=== PATIENT | male | born 1985 | race Caucasian/White ===

== ENCOUNTER 2017-05-19 18:06 | Inpatient (IN) | payer SELFPAY ==
[~2017-05-19] VITALS: Ht 160 cm; Wt 64.9 kg
[2017-05-19 20:34] LABS: BASO % 0.3 %; BASO ABS # 0.03 K/uL (0-0.2); COMPLETE YES; EOS % 1.3 %; HEMATOCRIT 45.3 % (42-52); IG% 0.1 %; LYMPH % 22.7 %; LYMPH ABS # 2.13 K/uL (1.2-3.4); MEAN CELL VOLUME 87.8 fL (80-100); MEAN CORPUSCULAR HEMOGLOBIN 30.2 pg (25-34); MEAN CORPUSCULAR HGB CONC 34.4 g/dl (32-36); MEAN PLATELET VOLUME 9.8 fL (7.4-10.4); MONO % 6.1 %; NEUT % 69.5 %; PLATELET COUNT 314 K/uL (130-400); RED BLOOD COUNT 5.16 M/uL (4.7-6.1); WHITE BLOOD COUNT 9.39 K/uL (4.8-10.8)
[2017-05-19 20:54] LABS: ALT/SGPT 24 U/L (12-78); BLOOD UREA NITROGEN 11 mg/dl (7-18); BUN/CREATININE RATIO 13.7 (10-20); CALCIUM 9.4 mg/dl (8.5-10.1); CARBON DIOXIDE 28 mmol/L (21-32); CHLORIDE 108 mmol/L (98-107); CREATININE 0.82 mg/dl (0.60-1.40); GLUCOSE 90 mg/dl (70-99); POTASSIUM 4.4 mmol/L (3.5-5.1); SODIUM 141 mmol/L (136-145)
[2017-05-19 20:57] LABS: ALKALINE PHOSPHATASE 75 U/L (45-117); AST/SGOT 16 U/L (15-37)
--- NOTE | 2017-05-19 21:14 | DIAGNOSTIC IMAGING REPORT ---
TWO VIEW CHEST CLINICAL HISTORY: Fever. FINDINGS: PA and lateral chest radiographs are obtained. No prior studies are available for comparison at the time of dictation. The cardiomediastinal silhouette is unremarkable. A calcified granuloma is noted at the right lung base. The lungs and pleural spaces are otherwise clear. There is no pneumothorax. The bony thorax appears intact. IMPRESSION: No active disease in the chest. Electronically signed by: Santiago Shepherd M.D. 05/19/2017 9:12 PM Dictated Date/Time: 05/19/2017 9:12 PM
[2017-05-19 21:27] LABS: LYME DISEASE AB IGG NEG (NEG); LYME DISEASE AB IGM NEG (NEG)
[2017-05-19 21:35] LABS: PARTIAL THROMBOPLASTIN RATIO 1.1; PROTHROMBIN TIME (PATIENT) 10.7 SECONDS (9.0-12.0)
[2017-05-19 22:09] LABS: URINE APPEARANCE CLEAR (CLEAR); URINE BILIRUBIN NEG (NEG); URINE COLOR YELLOW; URINE NITRITE NEG (NEG); URINE SPECIFIC GRAVITY 1.012 (1.000-1.030); UROBILINOGEN NEG (NEG)
[2017-05-19 22:11] LABS: MANUAL MICROSCOPIC REQUIRED? NO; REVIEW REQ? NO
--- NOTE | 2017-05-19 22:39 | DIAGNOSTIC IMAGING REPORT ---
CT SCAN OF THE CHEST WITHOUT IV CONTRAST CLINICAL HISTORY: Cough and fever COMPARISON STUDY: Chest x-ray dated 05/19/2017. TECHNIQUE: CT scan of the thorax was performed from the thoracic inlet to the upper abdomen. Images are reviewed in the axial, sagittal, and coronal planes. IV contrast was not administered for this examination as per the referring clinician. The examination is modestly degraded by motion artifact. CT DOSE: 228.15 mGy.cm FINDINGS: Thyroid: Imaged portions of the thyroid gland are normal in size and attenuation. Thoracic aorta: The thoracic aorta is normal in caliber and demonstrates standard 3-vessel arch anatomy. Heart: The heart is normal in size and without pericardial effusion. The pulmonary trunk is normal in caliber. Lungs and pleural spaces: There is no airspace consolidation or pleural effusion. A calcified granuloma is present in the right lower lobe. Minimal dependent atelectasis is observed. The trachea and central airways are clear. Mediastinum: There is no mediastinal lymphadenopathy. There is a calcified subcarinal node. Romi: Bowel assessed without IV contrast. Axillae: There is no axillary lymphadenopathy. Upper abdomen: Partially visualized upper abdominal viscera is within normal limits. Skeletal structures: No lytic or blastic bony lesions are seen. Soft tissues: A 1.5 cm sebaceous cyst is present in the ventral left chest wall as seen on image #127. IMPRESSION: 1. There is no airspace consolidation or pleural effusion. 2. A calcified granuloma at the right lung base and a calcification containing subcarinal node indicate remote granulomatous infection. 3. No mediastinal lymphadenopathy is identified. Electronically signed by: Santiago Shepherd M.D. 05/19/2017 10:38 PM Dictated Date/Time: 05/19/2017 10:34 PM
[2017-05-20] MEDS ORDERED: ONDANSETRON INJ 2 MG/ML 2 ML VIAL IV PRN
[2017-05-20] MEDS ORDERED: MAGNESIUM HYDROXIDE SUSP 30 ML UDC PO PRN
[2017-05-20] MEDS ORDERED: ZOLPIDEM TARTRATE 5 MG TAB PO PRN
--- NOTE | 2017-05-20 00:16 | History and Physical ---
History & Physical Date & Time of Service: May 20, 2017 at 00:04 Chief Complaint: Cyst On Chest Primary Care Physician: No Doctor, Assigned History of Present Illness Source: patient, partner Armen is a 32 year old [place] male who has resided in [place] the last 3 years. He noticed a lump on his left chest about 7 months ago, and wanted to get it checked out, so came to the ED today. It has remained the same size, color, and consistency the entire time. He has not noticed any discharge from it. He reports he has also not been feeling well over the last few months, with a variety of symptoms. This includes headaches, eye pain, back pain, and leg cramps. He reports he has not been sleeping well but denies fevers or night sweats. He denies cough but reports his neck has been giving him difficulties and it feels like there is something in his ears. Upon arriving to the ED, he discussed with the medical student that he has been coughing up blood the last few weeks. He has also previously been incarcerated for a month about 3 years ago. He denies any known contacts with TB. He lives at home with a roommate. He works at [employer] in [place]. He presents today with a female friend / partner. Past Medical/Surgical History PMHx: None PSHx: None Family History No known FHx. Social History Smoking Status: Current Some Day Smoker Alcohol Use: socially Marital Status: single Housing status: lives with friends Occupational Status: employed Allergies Coded Allergies: No Known Allergies (Unverified , 05/20/17) Home Medications No Active Prescriptions or Reported Meds Review of Systems Constitutional: + fever, + fatigue Eyes: No worsening of vision ENT: No hearing loss Respiratory: + cough, + hemoptysis, No sputum, No wheezing, No shortness of breath, No dyspnea on exertion Cardiovascular: No chest pain Abdomen: No pain, No nausea, No vomiting Musculoskeletal: No joint pain, No muscle pain Genitourinary - Male: No hematuria, No dysuria Neurologic: + weakness, No memory loss, No paralysis Psychiatric: + anxiety, No depression symptoms Endocrine: No fatigue Hematologic / Lymphatic: No abnormal bleeding/bruising Integumentary: + rash, + new/changing skin lesions Allergic / Immunologic: No environmental allergies Physical Exam Vital Signs Date Time Temp Pulse Resp B/P (MAP) Pulse Ox O2 Delivery O2 Flow Rate FiO2 05/19/17 23:43 64 16 105/77 99 Room Air 05/19/17 21:45 52 16 107/78 99 Room Air 05/19/17 20:31 60 16 114/83 98 Room Air 05/19/17 18:15 37.2 76 18 118/80 96 Room Air General Appearance: WD/WN, no apparent distress Head: normocephalic, atraumatic Eyes: normal inspection, PERRL ENT: hearing grossly normal Neck: supple, no JVD Respiratory/Chest: lungs clear, normal breath sounds, no respiratory distress Cardiovascular: regular rate, rhythm, no murmur, normal peripheral pulses Abdomen/GI: normal bowel sounds, non tender, soft Back: normal inspection, no muscle spasm Extremities/Musculoskelatal: no calf tenderness, no pedal edema 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 Dark in color, no visible exudates, induration, or erythema.) Lymphatic: no adenopathy Diagnostics Laboratory Results Results Past 24 Hours Test 05/19/17 20:05 05/19/17 21:05 05/19/17 21:45 05/19/17 23:57 Range/Units White Blood Count 9.39 4.8-10.8 K/uL Red Blood Count 5.16 4.7-6.1 M/uL Hemoglobin 15.6 14.0-18.0 g/dL Hematocrit 45.3 42-52 % Mean Corpuscular Volume 87.8 80-100 fL Mean Corpuscular Hemoglobin 30.2 25-34 pg Mean Corpuscular Hemoglobin Concent 34.4 32-36 g/dl Platelet Count 314 130-400 K/uL Mean Platelet Volume 9.8 7.4-10.4 fL Neutrophils (%) (Auto) 69.5 % Lymphocytes (%) (Auto) 22.7 % Monocytes (%) (Auto) 6.1 % Eosinophils (%) (Auto) 1.3 % Basophils (%) (Auto) 0.3 % Neutrophils # (Auto) 6.53 1.4-6.5 K/uL Lymphocytes # (Auto) 2.13 1.2-3.4 K/uL Monocytes # (Auto) 0.57 0.11-0.59 K/uL Eosinophils # (Auto) 0.12 0-0.5 K/uL Basophils # (Auto) 0.03 0-0.2 K/uL RDW Standard Deviation 39.0 36.4-46.3 fL RDW Coefficient of Variation 12.1 11.5-14.5 % Immature Granulocyte % (Auto) 0.1 % Immature Granulocyte # (Auto) 0.01 0.00-0.02 K/uL Sodium Level 141 136-145 mmol/L Potassium Level 4.4 3.5-5.1 mmol/L Chloride Level 108 98-107 mmol/L Carbon Dioxide Level 28 21-32 mmol/L Anion Gap 5.0 3-11 mmol/L Blood Urea Nitrogen 11 7-18 mg/dl Creatinine 0.82 0.60-1.40 mg/dl Estimated GFR () 134.7 Estimated GFR (Non- 116.2 BUN/Creatinine Ratio 13.7 10-20 Random Glucose 90 70-99 mg/dl Calcium Level 9.4 8.5-10.1 mg/dl Total Bilirubin 0.4 0.2-1 mg/dl Direct Bilirubin 0.1 0-0.2 mg/dl Aspartate Amino Transf (AST/SGOT) 16 15-37 U/L Alanine Aminotransferase (ALT/SGPT) 24 12-78 U/L Alkaline Phosphatase 75 45-117 U/L Total Protein 8.1 6.4-8.2 gm/dl Albumin 4.2 3.4-5.0 gm/dl Lyme Disease IgG Antibody NEG NEG Lyme Disease IgM Antibody NEG NEG Prothrombin Time 10.7 9.0-12.0 SECONDS Prothromb Time International Ratio 1.0 0.9-1.1 Activated Partial Thromboplast Time 29.1 21.0-31.0 SECONDS Partial Thromboplastin Ratio 1.1 Urine Color YELLOW Urine Appearance CLEAR CLEAR Urine pH 7.0 4.5-7.5 Urine Specific [place] 1.012 1.000-1.030 Urine Protein NEG NEG Urine Glucose (UA) NEG NEG Urine Ketones NEG NEG Urine Occult Blood NEG NEG Urine Nitrite NEG NEG Urine Bilirubin NEG NEG Urine Urobilinogen NEG NEG Urine Leukocyte Esterase NEG NEG Microbiology Results 05/19/17 Blood Culture, Received Pending 05/19/17 Blood Culture, Received Pending Diagnostic Radiology TWO VIEW CHEST CLINICAL HISTORY: Fever. FINDINGS: PA and lateral chest radiographs are obtained. No prior studies are available for comparison at the time of dictation. The cardiomediastinal silhouette is unremarkable. A calcified granuloma is noted at the right lung base. The lungs and pleural spaces are otherwise clear. There is no pneumothorax. The bony thorax appears intact. IMPRESSION: No active disease in the chest. CT SCAN OF THE CHEST WITHOUT IV CONTRAST CLINICAL HISTORY: Cough and fever COMPARISON STUDY: Chest x-ray dated 05/19/2017. TECHNIQUE: CT scan of the thorax was performed from the thoracic inlet to the upper abdomen. Images are reviewed in the axial, sagittal, and coronal planes. IV contrast was not administered for this examination as per the referring clinician. The examination is modestly degraded by motion artifact. CT DOSE: 228.15 mGy.cm FINDINGS: Thyroid: Imaged portions of the thyroid gland are normal in size and attenuation. Thoracic aorta: The thoracic aorta is normal in caliber and demonstrates standard 3-vessel arch anatomy. Heart: The heart is normal in size and without pericardial effusion. The pulmonary trunk is normal in caliber. Lungs and pleural spaces: There is no airspace consolidation or pleural effusion. A calcified granuloma is present in the right lower lobe. Minimal dependent atelectasis is observed. The trachea and central airways are clear. Mediastinum: There is no mediastinal lymphadenopathy. There is a calcified subcarinal node. Romi: Bowel assessed without IV contrast. Axillae: There is no axillary lymphadenopathy. Upper abdomen: Partially visualized upper abdominal viscera is within normal limits. Skeletal structures: No lytic or blastic bony lesions are seen. Soft tissues: A 1.5 cm sebaceous cyst is present in the ventral left chest wall as seen on image #127. IMPRESSION: 1. There is no airspace consolidation or pleural effusion. 2. A calcified granuloma at the right lung base and a calcification containing subcarinal node indicate remote granulomatous infection. 3. No mediastinal lymphadenopathy is identified. Impression Assessment and Plan 32 yo M initially presented for evaluation of a sebaceous cyst, found to potentially have latent TB until proven otherwise. Potential for latent TB - Quantiferon test ordered - Will await initiation of anti-TB therapy until after bronchoscopy to not skew washing results - Pulmonary consulted - Infectious Diseases consulted - Patient aware of diagnosis - CB to be contacted - Negative pressure room and droplet precautions (this was started upon his arrival to the ED) Sebaceous cyst - Will defer to primary team VTE: SCDs CODE STATUS: Full DISPO: Med/Surg, Negative pressure room Resident Physician Supervision Note: I was present with Dr. Blank during the history and exam. I discussed the case with the resident and agree with the findings and plan as documented in the note. Any exceptions or clarifications are listed here: 32 y/o M no known med hX with several months of fevers, night sweats - presented with multiple blister-like skin lesions - TB was suspected and due to his histroy he was sent for a CT which did reveal a granuloma OE AAO x 3 S1,2 R CTAB NT, ND No CCE Multiple small cysts on trunk/extremities P: TB is presumed - consult pulm and ID - will not start treatment until culture obtained as symptoms have been chronic for several months Pt works at [employer] - may need to inform the dept of health Discussed at length with pt Documented By: Yaya Dye Level of Care Med/Surg Resuscitation Status FULL RESUSCITATION VTE Prophylaxis VTE Risk Assessment Done? Y/N: Yes Risk Level: Moderate Resident Tracking Resident Involvement: Resident Care Provided Care Provided: Adult Hospital Medicine
--- NOTE | 2017-05-20 00:32 | EMERGENCY ROOM VISIT NOTE ---
History Report prepared by Annie: Cindy Aguirre Under the Supervision of: Dr. Fidel Harley M.D. First contact with patient: 18:56 Chief Complaint: WOUND INFECTION Stated Complaint: CYST ON CHEST Nursing Triage Summary: Pt reports he has a cyst on his left chest. Pt noticed it 7 months ago. Pt reports it hurts now History of Present Illness The patient is a 32 year old male who presents to the Emergency Room with complaints of a persistent wound to his chest that he first noticed seven months ago. He currently rates his discomfort as a 7/10 in severity. The patient states that he noticed a bump on his chest 7 months ago and states that he saw a doctor who prescribed him an unknown cream that did not help the area. He states that at first the area did not hurt, but now is noticing pain to the area. The patient denies any drainage or discharge from the area. He states that it has grown in size from a pimple to dime sized. The patient denies any change in color. He notes that the area hurts at rest as well. The patient additionally notes smaller bumps to his chest as well. The patient additionally notes that over the past few days he has developed a headache, bilateral eye pain, a fever, back pain, cough, and right shoulder pain. He is unsure if his symptoms are related to the bumps he has formed on his chest. The patient states that he travelled to the three years ago and has not travelled back to [facility] recently. He denies any recent tick bites and denies being outdoors often. The patient states that he has been incarcerated in the past in the three years ago. He is unsure if he was exposed to anyone with Tuberculosis. He states that he was incarcerated for 1 month. The patient reports a weight loss of 5 lbs in the past 4-5 months. He has had a cough with some hemoptysis. Source of History: patient History Limited By: language Onset: seven months ago Position: chest Symptom Intensity: 7/10 Quality: other (wound) Timing: other (persistent) Associated Symptoms: + fevers, + headache, + cough, + back pain Note: Associated Symptoms: right shoulder pain, bilateral eye pain Review of Systems See HPI for pertinent positives & negatives. A total of 10 systems reviewed and were otherwise negative. Past Medical & Surgical Medical Problems: (1) Pulmonary TB No pertinent history stated. Family History No pertinent family history stated. Social History Smoking Status: Current Some Day Smoker Marital Status: Housing Status: lives with significant other Occupation Status: employed Current/Historical Medications No Active Prescriptions or Reported Meds Allergies Coded Allergies: No Known Allergies (Unverified , 05/20/17) Physical Exam Vital Signs Date Time Temp Pulse Resp B/P (MAP) Pulse Ox O2 Delivery O2 Flow Rate FiO2 05/19/17 23:43 64 16 105/77 99 Room Air 05/19/17 21:45 52 16 107/78 99 Room Air 05/19/17 20:31 60 16 114/83 98 Room Air 05/19/17 18:15 37.2 76 18 118/80 96 Room Air Physical Exam Constitutional: Vital signs reviewed. Eyes: Pupils are equal round reactive to light. Conjunctiva are noninjected. ENT: Pharynx is clear without erythema or exudate. Mucous membranes are moist. Neck supple without meningeal signs. Respiratory: Clear to auscultation bilaterally. Breath sounds are equal bilaterally. Cardiovascular: Regular rate and rhythm. No rubs or gallops. GI: Soft, nondistended and nontender. Bowel sounds are present. Musculoskeletal: No peripheral edema. No lower extremity tenderness. Integumentary: 1 cm tender cystic lesion on the left anterior chest. No cyanosis. Neurological: The patient is awake and alert. No focal deficits. Psychiatric: Normal affect. Medical Decision & Procedures ER Provider Diagnostic Interpretation: Radiology results as stated below per my review and the radiologist's interpretation: TWO VIEW CHEST CLINICAL HISTORY: Fever. FINDINGS: PA and lateral chest radiographs are obtained. No prior studies are available for comparison at the time of dictation. The cardiomediastinal silhouette is unremarkable. A calcified granuloma is noted at the right lung base. The lungs and pleural spaces are otherwise clear. There is no pneumothorax. The bony thorax appears intact. IMPRESSION: No active disease in the chest. Electronically signed by: Santiago Shepherd M.D. 05/19/2017 9:12 PM Dictated Date/Time: 05/19/2017 9:[address] SCAN OF THE CHEST WITHOUT IV CONTRAST CLINICAL HISTORY: Cough and fever COMPARISON STUDY: Chest x-ray dated 05/19/2017. TECHNIQUE: CT scan of the thorax was performed from the thoracic inlet to the upper abdomen. Images are reviewed in the axial, sagittal, and coronal planes. IV contrast was not administered for this examination as per the referring clinician. The examination is modestly degraded by motion artifact. CT DOSE: 228.15 mGy.cm FINDINGS: Thyroid: Imaged portions of the thyroid gland are normal in size and attenuation. Thoracic aorta: The thoracic aorta is normal in caliber and demonstrates standard 3-vessel arch anatomy. Heart: The heart is normal in size and without pericardial effusion. The pulmonary trunk is normal in caliber. Lungs and pleural spaces: There is no airspace consolidation or pleural effusion. A calcified granuloma is present in the right lower lobe. Minimal dependent atelectasis is observed. The trachea and central airways are clear. Mediastinum: There is no mediastinal lymphadenopathy. There is a calcified subcarinal node. Romi: Bowel assessed without IV contrast. Axillae: There is no axillary lymphadenopathy. Upper abdomen: Partially visualized upper abdominal viscera is within normal limits. Skeletal structures: No lytic or blastic bony lesions are seen. Soft tissues: A 1.5 cm sebaceous cyst is present in the ventral left chest wall as seen on image #127. IMPRESSION: 1. There is no airspace consolidation or pleural effusion. 2. A calcified granuloma at the right lung base and a calcification containing subcarinal node indicate remote granulomatous infection. 3. No mediastinal lymphadenopathy is identified. Electronically signed by: Santiago Shepherd M.D. 05/19/2017 10:38 PM Dictated Date/Time: 05/19/2017 10:34 PM Laboratory Results 05/19/17 20:05 Red Blood Count 5.16, Mean Corpuscular Volume 87.8, Mean Corpuscular Hemoglobin 30.2, Mean Corpuscular Hemoglobin Concent 34.4, Mean Platelet Volume 9.8, Neutrophils (%) (Auto) 69.5, Lymphocytes (%) (Auto) 22.7, Monocytes (%) (Auto) 6.1, Eosinophils (%) (Auto) 1.3, Basophils (%) (Auto) 0.3, Neutrophils # (Auto) 6.53, Lymphocytes # (Auto) 2.13, Monocytes # (Auto) 0.57, Eosinophils # (Auto) 0.12, Basophils # (Auto) 0.03 05/19/17 20:05 Test 05/19/17 20:05 05/19/17 21:05 05/19/17 21:45 05/19/17 23:57 White Blood Count 9.39 K/uL (4.8-10.8) Red Blood Count 5.16 M/uL (4.7-6.1) Hemoglobin 15.6 g/dL (14.0-18.0) Hematocrit 45.3 % (42-52) Mean Corpuscular Volume 87.8 fL (80-100) Mean Corpuscular Hemoglobin 30.2 pg (25-34) Mean Corpuscular Hemoglobin Concent 34.4 g/dl (32-36) Platelet Count 314 K/uL (130-400) Mean Platelet Volume 9.8 fL (7.4-10.4) Neutrophils (%) (Auto) 69.5 % Lymphocytes (%) (Auto) 22.7 % Monocytes (%) (Auto) 6.1 % Eosinophils (%) (Auto) 1.3 % Basophils (%) (Auto) 0.3 % Neutrophils # (Auto) 6.53 K/uL (1.4-6.5) Lymphocytes # (Auto) 2.13 K/uL (1.2-3.4) Monocytes # (Auto) 0.57 K/uL (0.11-0.59) Eosinophils # (Auto) 0.12 K/uL (0-0.5) Basophils # (Auto) 0.03 K/uL (0-0.2) RDW Standard Deviation 39.0 fL (36.4-46.3) RDW Coefficient of Variation 12.1 % (11.5-14.5) Immature Granulocyte % (Auto) 0.1 % Immature Granulocyte # (Auto) 0.01 K/uL (0.00-0.02) Anion Gap 5.0 mmol/L (3-11) Estimated GFR () 134.7 Estimated GFR (Non- 116.2 BUN/Creatinine Ratio 13.7 (10-20) Calcium Level 9.4 mg/dl (8.5-10.1) Total Bilirubin 0.4 mg/dl (0.2-1) Direct Bilirubin 0.1 mg/dl (0-0.2) Aspartate Amino Transf (AST/SGOT) 16 U/L (15-37) Alanine Aminotransferase (ALT/SGPT) 24 U/L (12-78) Alkaline Phosphatase 75 U/L (45-117) Total Protein 8.1 gm/dl (6.4-8.2) Albumin 4.2 gm/dl (3.4-5.0) Lyme Disease IgG Antibody NEG (NEG) Lyme Disease IgM Antibody NEG (NEG) Prothrombin Time 10.7 SECONDS (9.0-12.0) Prothromb Time International Ratio 1.0 (0.9-1.1) Activated Partial Thromboplast Time 29.1 SECONDS (21.0-31.0) Partial Thromboplastin Ratio 1.1 Urine Color YELLOW Urine Appearance CLEAR (CLEAR) Urine pH 7.0 (4.5-7.5) Urine Specific [place] 1.012 (1.000-1.030) Urine Protein NEG (NEG) Urine Glucose (UA) NEG (NEG) Urine Ketones NEG (NEG) Urine Occult Blood NEG (NEG) Urine Nitrite NEG (NEG) Urine Bilirubin NEG (NEG) Urine Urobilinogen NEG (NEG) Urine Leukocyte Esterase NEG (NEG) Laboratory results as reviewed by me. ED Course 1856: The patient was evaluated in room A2. A complete history and physical exam was performed by the medical student. 1930: The patient was evaluated in room A2. A complete history and physical exam was performed. 2256: The medical student reevaluated the patient and he states that he has been coughing up blood 2-3 times per week. The patient understands that he will be evaluated for further treatment. 2315: I reevaluated the patient and he is resting. I discussed the exam findings with him and I discussed he treatment plan. He verbalized complete understanding and agreement. He is going to be evaluated for further treatment. 2320: I discussed the patients case with MELANY Valenzuela. He is going to evaluate the patient for further treatment. Medical Decision This is a 32-year-old male who presents with a skin lesion and a variety of complaints. Differential diagnosis includes infected cyst, abscess, tuberculosis, viral syndrome, Lyme disease. I did perform a limited focused review of portions of the patient's old chart on the electronic medical record. The patient has had no prior visits. Medication Reconciliation: I attest that I have personally reviewed the patient' s current medication list. Blood Pressure Screening: Patient was found to have normal blood pressure on screening and does not require follow-up. I did evaluate the patient as noted above. History was obtained using a mate fourth. Patient is presenting with a skin lesion. It does appear to be a infected cyst of some sort. There is no cellulitis surrounding it. He also has a variety of other complaints including fevers, vomiting, headaches and cough with hemoptysis. He was previously incarcerated about 3 years ago in the . He has no known exposures to TB. He does state that he had a recent 5 pound unexplained weight loss and he has been feeling generally ill. I did place the patient in a negative pressure isolation room. IV access was established. I did order and personally review the patient's there Chest x- ray as described above. There is no evidence of acute abnormality. I did order and review the patient's blood work as noted in the electronic medical record. I did order a CT of the chest. I did review the images myself as well as the radiology report as described above. He does have a granuloma in the right side with a subcarinal lymph node. Because of his clinical presentation and CT findings I was concerned about tuberculosis. I did discuss case with the hospitalist and counseling case manager. He will be hospitalized for further evaluation. Consults Time Called: 2300 Consulting Physician: MELANY Valenzuela Returned Call: 2320 I discussed the patients case with MELANY Valenzuela. He is going to evaluate the patient for further treatment. Impression Primary Impression: Tuberculosis Additional Impression: Skin lesion of chest wall Scribe Attestation The scribe's documentation has been prepared under my direct and personally reviewed by me in its entirety. I confirm that the note above accurately reflects all work, treatment, procedures, and medical decision making performed by me. Departure Information Dispostion Being Evaluated By Hospitalist Prescriptions No Active Prescriptions or Reported Meds Problem Qualifiers
[2017-05-20 01:20] VITALS: BP 109/73; PULSE 62; TEMP 37; O2SAT 98; Ht 160 cm; Wt 64.9 kg
[2017-05-20] MEDS ORDERED: PATIENT'S HEIGHT AND/OR WEIGHT NEEDED SCH (03:30)
[2017-05-20 07:47] VITALS: BP 93/58; PULSE 54; TEMP 36.8; O2SAT 99
[2017-05-20] MEDS ORDERED: ENOXAPARIN 40 MG/0.4 ML SYR SQ SCH (09:00)
[2017-05-20] MEDS: ACETAMINOPHEN 325 MG TAB PO PRN (09:12)
--- NOTE | 2017-05-20 09:35 | Medical Consult ---
Consultation Date of Consultation: May 20, 2017. Attending Physician: Pedro Cain MD History of Present Illness pt admitted for ? TB. [place] Unknown previous TB workup. Has had a lump on chest for many months, came to ER for eval of this yesterday. He also stated some hemoptysis for months as well. was admitted for tb workup, IGRA penidng, placed in isolation, no sputums ordered. blood culture pending, cxr negative but ct chest with granuloma RLL. States he is eating well , denies wt loss but states he is unsure. + intermittent fevers and neck pain. denies cervical lymphadenopathy. Unknown contacts. Afebrile since admission. wbc 9.3. sitting oob to chair and eating breakfast on my exam. denies pleuritic chest pain. no n/v/d. states some abd pain if he drinks too much coffee, otherwise ros reviewed and are negative. Past Medical/Surgical History Medical Problems: (1) Skin lesion of chest wall Status: Acute (2) Tuberculosis Status: Acute Social History Smoking Status: Former Smoker Alcohol Use: socially Marital Status: Housing Status: lives with significant other Occupation Status: employed Allergies Coded Allergies: No Known Allergies (Unverified , 05/20/17) Current Inpatient Medications Current Inpatient Medications Medications (Trade) Dose Ordered Sig/Ella Route Start Time Stop Time Status Last Admin Dose Admin Enoxaparin Sodium (Lovenox Inj) 40 mg Q24H SQ 05/20/17 09:00 06/19/17 08:59 Acetaminophen (Tylenol Tab) 650 mg Q4H PRN PO 05/20/17 00:00 06/19/17 00:00 05/20/17 09:12 650 MG Magnesium Hydroxide (Milk Of Magnesia Susp) 30 ml Q6H PRN PO 05/20/17 00:00 06/19/17 00:00 Zolpidem Tartrate (Ambien Tab) 5 mg HSZ PRN PO 05/20/17 00:00 06/19/17 00:00 Ondansetron HCl (Zofran Inj) 4 mg Q6H PRN IV 05/20/17 00:00 06/19/17 00:00 Physical Exam Date Time Temp Pulse Resp B/P (MAP) Pulse Ox O2 Delivery O2 Flow Rate FiO2 05/20/17 07:47 36.8 54 18 93/58 (70) 99 Room Air 05/20/17 01:20 37.0 62 18 109/73 98 Room Air 05/20/17 01:15 64 16 106/68 99 05/19/17 23:43 64 16 105/77 99 Room Air 05/19/17 21:45 52 16 107/78 99 Room Air 05/19/17 20:31 60 16 114/83 98 Room Air 05/19/17 18:15 37.2 76 18 118/80 96 Room Air General Appearance: WD/WN, no apparent distress Head: normocephalic, atraumatic Eyes: normal inspection, EOMI Neck: supple, no adenopathy Respiratory/Chest: lungs clear, normal breath sounds, no respiratory distress Cardiovascular: regular rate, rhythm, no edema Abdomen/GI: non tender, soft Extremities/Musculoskelatal: normal inspection, no calf tenderness, no pedal edema Neurologic/Psych: alert, oriented x 3 Skin: normal color, warm/dry, no rash Laboratory Results Last 24 Hours Test 05/19/17 20:05 05/19/17 21:05 05/19/17 21:45 05/20/17 05:16 White Blood Count 9.39 K/uL Red Blood Count 5.16 M/uL Hemoglobin 15.6 g/dL Hematocrit 45.3 % Mean Corpuscular Volume 87.8 fL Mean Corpuscular Hemoglobin 30.2 pg Mean Corpuscular Hemoglobin Concent 34.4 g/dl Platelet Count 314 K/uL Mean Platelet Volume 9.8 fL Neutrophils (%) (Auto) 69.5 % Lymphocytes (%) (Auto) 22.7 % Monocytes (%) (Auto) 6.1 % Eosinophils (%) (Auto) 1.3 % Basophils (%) (Auto) 0.3 % Neutrophils # (Auto) 6.53 K/uL Lymphocytes # (Auto) 2.13 K/uL Monocytes # (Auto) 0.57 K/uL Eosinophils # (Auto) 0.12 K/uL Basophils # (Auto) 0.03 K/uL RDW Standard Deviation 39.0 fL RDW Coefficient of Variation 12.1 % Immature Granulocyte % (Auto) 0.1 % Immature Granulocyte # (Auto) 0.01 K/uL Sodium Level 141 mmol/L Potassium Level 4.4 mmol/L Chloride Level 108 mmol/L Carbon Dioxide Level 28 mmol/L Anion Gap 5.0 mmol/L Blood Urea Nitrogen 11 mg/dl Creatinine 0.82 mg/dl Estimated GFR () 134.7 Estimated GFR (Non- 116.2 BUN/Creatinine Ratio 13.7 Random Glucose 90 mg/dl Calcium Level 9.4 mg/dl Total Bilirubin 0.4 mg/dl Direct Bilirubin 0.1 mg/dl Aspartate Amino Transf (AST/SGOT) 16 U/L Alanine Aminotransferase (ALT/SGPT) 24 U/L Alkaline Phosphatase 75 U/L Total Protein 8.1 gm/dl Albumin 4.2 gm/dl Lyme Disease IgG Antibody NEG Lyme Disease IgM Antibody NEG Prothrombin Time 10.7 SECONDS Prothromb Time International Ratio 1.0 Activated Partial Thromboplast Time 29.1 SECONDS Partial Thromboplastin Ratio 1.1 Urine Color YELLOW Urine Appearance CLEAR Urine pH 7.0 Urine Specific [place] 1.012 Urine Protein NEG Urine Glucose (UA) NEG Urine Ketones NEG Urine Occult Blood NEG Urine Nitrite NEG Urine Bilirubin NEG Urine Urobilinogen NEG Urine Leukocyte Esterase NEG Assessment & Plan (1) Lung granuloma Assessment & Plan: with history and previous residence in TB area, will need workup. IGRA pending. Needs sputum culture for AFB x 3, if unable to produce will need bronch. maintain airborne isolation until sputum smears negative. Hold abx for now pending further workup.
[2017-05-20] MEDS ORDERED: RANITIDINE HCL 150 MG TAB PO ONE (12:09)
--- NOTE | 2017-05-20 14:18 | Pulmonary Consultation ---
History General Date of Service: May 20, 2017. Stated Complaint: Pulmonary Tb HPI The patient is a 32 year old male who presents to [facility] with complaints of Pulmonary Tb. The patient's primary care provider is No Doctor, Assigned. CC: Possible Tuberculosis The patient is a 32 year old [place] male admitted through the [facility] ED for possible TB. The patient has been living in [place] over the last 3 years and working at [employer]. 7 months prior to admission he noted a lump on his anterior left serina-thorax. He decides on the day of admission to get evaluated. He denies change in size, shape, and discharge in the node during this time. He does note headache, insomnia, neck pain, back pain, leg cramps, hemoptysis (1-2x per month over the previous 3 months) and a history of previous incarceration (for one month in [place] via immigration). He works at [employer], live with roommates and has a female partner Positive findings: Headache, myalgias, hemoptysis Denies: fever, unintentional weight loss, pleurisy Work-Up VS: Temp: 37.0 max WBC: 9K (Neutro#: 6.53) INR: 1.0 PTT: 10.7 aPPT: 29.1 Lyme: negative Quant-Gold: pending---place PPD Radiology: CXR (05/19/17) nodule RLL CT Thorax non-contrast (05/19/17) calcified granuloma RLL and ram[place] station 7 Review of Systems Constitutional: reports: malaise Eyes: reports: other (patient notes it feels like he has a hair in his eyes but completely clear vision) ENT: reports: no symptoms Cardiovascular: reports: no symptoms Respiratory: reports: as stated in HPI Gastrointestinal: reports: no symptoms Genitourinary - Male: reports: no symptoms Musculoskeletal: reports: as stated in HPI Integumentary: reports: no symptoms Neurologic: reports: as stated in HPI Psychiatric: reports: no symptoms Endocrine: no symptoms Hematologic / Lymphatic: no symptoms Allergic / Immunologic: no symptoms Past Medical History Past Medical History: no pertinent history Past Surgical History: no surgical history Family History Presentation no significant family history Social History Smoking Status: Current Smoker Alcohol Use: socially Marital Status: single Housing status: lives with friends Occupational Status: employed Hx Tobacco Use In Past Year?: No Smoking Status: Former Smoker Marital status: Housing status: lives with friends Occupational Status: employed Allergies Coded Allergies: No Known Allergies (Unverified , 05/20/17) Current Medications Reported Home Medications Medications Dose Route/Sig Max Daily Dose Days Date Category No Active Prescriptions or Reported Medications Rx Physical Physical Exam Vital Signs: Date Time Temp Pulse Resp B/P (MAP) Pulse Ox O2 Delivery O2 Flow Rate FiO2 05/20/17 08:00 Room Air 05/20/17 07:47 36.8 54 18 93/58 (70) 99 Room Air 05/20/17 01:20 37.0 62 18 109/73 98 Room Air 05/20/17 01:15 64 16 106/68 99 05/19/17 23:43 64 16 105/77 99 Room Air 05/19/17 21:45 52 16 107/78 99 Room Air 05/19/17 20:31 60 16 114/83 98 Room Air 05/19/17 18:15 37.2 76 18 118/80 96 Room Air General Appearance: WELL-APPEARING, NO APPARENT DISTRESS Head: NORMOCEPHALIC, ATRAUMATIC Eyes: PERRLA, NO DISCHARGE, EOMI, SCLERAE NORMAL, CONJUNCTIVAE NORMAL ENT: NORMAL EAR EXAM, NORMAL NASAL EXAM, NORMAL MOUTH EXAM, NORMAL THROAT EXAM , NORMAL DENTAL EXAM Neck: NORMAL RANGE OF MOTION, NO TENDERNESS, TRACHEA MIDLINE, NO STRIDOR Respiratory: BREATH SOUNDS NORMAL, CLEAR TO AUSCULTATION, CLEAR TO PERCUSSION, NO RESPIRATORY DISTRESS, other (left anterior chest wall just medial to the sternum approximately fourth intercostal space 1 cm erythematous nodule noted) Cardiovasular: REGULAR RATE/RHYTHM, NORMAL S1S2, NO M/G/R, NO MURMUR, NO GALLOP Abdomen: NON TENDER, NORMAL BOWEL SOUNDS, NO REBOUND, NO MASSES, NO GUARDING, NO ORGANOMEGALY Genitourinary - Male: EXTERNAL GENITALIA NORMAL Back: NORMAL INSPECTION, NO MIDLINE TENDERNESS, NO CVA TENDERNESS, NO PARAVERTEBRAL TTP Upper Extremities: NO EDEMA, NO DEFORMITY, NORMAL ROM Lower Extremities: NO EDEMA, NO DEFORMITY, NORMAL ROM Pulses: carotid (R) (2+), carotid (L) (2+), posterior tibial (R), posterior tibial (L) (2+) Neuro: ALERT, ORIENTED x 3, NORMAL MOTOR EXAM, NORMAL SENSATION, NORMAL CEREBELLAR EXAM Reflexes: biceps (R) (2+), bicpes (L) (2+), achilles (R) (2+), achilles (L) (2+ ) Babinski Testing: right (downgoing), left (downgoing) Psychiatric: NORMAL AFFECT, NO SUICIDAL IDEATION Diagnostics Labs Results Past 24 Hours Test 05/19/17 20:05 05/19/17 21:05 05/19/17 21:45 05/20/17 05:16 Range/Units White Blood Count 9.39 4.8-10.8 K/uL Red Blood Count 5.16 4.7-6.1 M/uL Hemoglobin 15.6 14.0-18.0 g/dL Hematocrit 45.3 42-52 % Mean Corpuscular Volume 87.8 80-100 fL Mean Corpuscular Hemoglobin 30.2 25-34 pg Mean Corpuscular Hemoglobin Concent 34.4 32-36 g/dl Platelet Count 314 130-400 K/uL Mean Platelet Volume 9.8 7.4-10.4 fL Neutrophils (%) (Auto) 69.5 % Lymphocytes (%) (Auto) 22.7 % Monocytes (%) (Auto) 6.1 % Eosinophils (%) (Auto) 1.3 % Basophils (%) (Auto) 0.3 % Neutrophils # (Auto) 6.53 1.4-6.5 K/uL Lymphocytes # (Auto) 2.13 1.2-3.4 K/uL Monocytes # (Auto) 0.57 0.11-0.59 K/uL Eosinophils # (Auto) 0.12 0-0.5 K/uL Basophils # (Auto) 0.03 0-0.2 K/uL RDW Standard Deviation 39.0 36.4-46.3 fL RDW Coefficient of Variation 12.1 11.5-14.5 % Immature Granulocyte % (Auto) 0.1 % Immature Granulocyte # (Auto) 0.01 0.00-0.02 K/uL Sodium Level 141 136-145 mmol/L Potassium Level 4.4 3.5-5.1 mmol/L Chloride Level 108 98-107 mmol/L Carbon Dioxide Level 28 21-32 mmol/L Anion Gap 5.0 3-11 mmol/L Blood Urea Nitrogen 11 7-18 mg/dl Creatinine 0.82 0.60-1.40 mg/dl Estimated GFR () 134.7 Estimated GFR (Non- 116.2 BUN/Creatinine Ratio 13.7 10-20 Random Glucose 90 70-99 mg/dl Calcium Level 9.4 8.5-10.1 mg/dl Total Bilirubin 0.4 0.2-1 mg/dl Direct Bilirubin 0.1 0-0.2 mg/dl Aspartate Amino Transf (AST/SGOT) 16 15-37 U/L Alanine Aminotransferase (ALT/SGPT) 24 12-78 U/L Alkaline Phosphatase 75 45-117 U/L Total Protein 8.1 6.4-8.2 gm/dl Albumin 4.2 3.4-5.0 gm/dl Lyme Disease IgG Antibody NEG NEG Lyme Disease IgM Antibody NEG NEG Prothrombin Time 10.7 9.0-12.0 SECONDS Prothromb Time International Ratio 1.0 0.9-1.1 Activated Partial Thromboplast Time 29.1 21.0-31.0 SECONDS Partial Thromboplastin Ratio 1.1 Urine Color YELLOW Urine Appearance CLEAR CLEAR Urine pH 7.0 4.5-7.[address] 1.012 1.000-1.030 Urine Protein NEG NEG Urine Glucose (UA) NEG NEG Urine Ketones NEG NEG Urine Occult Blood NEG NEG Urine Nitrite NEG NEG Urine Bilirubin NEG NEG Urine Urobilinogen NEG NEG Urine Leukocyte Esterase NEG NEG Microbiology Results 05/19/17 Blood Culture, Received Pending 05/19/17 Blood Culture, Received Pending Diagnostic Radiology CXR (05/19/17) nodule RLL CT Thorax non-contrast (05/19/17) calcified granuloma RLL and ramon station 7 Impression Assessment and Plan 32-year-old male admitted in place and isolation for possible tuberculosis: #1 Tuberculosis: The patient does have a strong social history as well as notable exposure as he comes from [place] and was incarcerated, in [place] but only for month by the INS as he immigrated to [facility]. As the patient is an undocumented alien he has never been fully evaluated for tuberculosis. He also notes no workup by the INS system in [place]. In 2013 approximately 66% of the TB cases and [place] were notably from foreign- born individuals in the majority of these cases were from countries: [place], [place], [place], [place], [place], [place] and [place]. Agree with the primary care teams initiation of a QuantiFERON Gold. As with a slow turnaround time for QuantiFERON Gold serum studies that suggest we place a PPD. I should note that if the PPD is negative would have to clinically treated as a false negative at this time. I'm also concerned that the patient might have disseminated TB as he is noted to have an anterior parasternal nodule as well as 6 to 7 months with headache and myalgias. Due to this I will speak to pathology to see if we can obtain a transcutaneous biopsy of the lymph node for further evaluation as well as perform lumbar puncture to rule out meningitis. I also agree with the primary care teams initiation of HIV testing. As the patient is high risk for tuberculosis I suggest we contact public health so they can initiate further community workup if necessary and also suggest if we initiate primary TB treatment.
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
--- NOTE | 2017-05-20 15:14 | DIAGNOSTIC IMAGING REPORT ---
CT HEAD WITHOUT CONTRAST (CT) CLINICAL HISTORY: Chronic headaches. Miliary TB. COMPARISON STUDY: No previous studies for comparison. TECHNIQUE: Axial CT of the brain is performed from the vertex to the skull base. IV contrast was not administered for this examination. CT DOSE: 623.48 mGy.cm FINDINGS: No intra or extra-axial mass lesions are visualized. There is no CT evidence of acute cortical infarction. There is no evidence of midline shift. There is no acute hemorrhage. No calvarial fractures are visualized. There is no evidence of pathologic ventricular dilatation. There is no evidence of acute sinusitis IMPRESSION: Normal noncontrast head CT. Electronically signed by: Dagoberto Thakur M.D. 05/20/2017 3:12 PM Dictated Date/Time: 05/20/2017 3:11 PM
[2017-05-20 16:01] VITALS: BP 112/76; PULSE 64; TEMP 36.7; O2SAT 98
--- NOTE | 2017-05-20 17:25 | Procedure Note ---
Procedure Note Date of Service May 20, 2017. Procedure Note Procedure: Lumbar puncture Consent: Obtained to the patient and the poolroom/poolhall manager placed in the chart Preprocedural diagnosis: TB meningitis Postprocedural diagnosis: Normal-appearing CSF fluid Analgesia: 5 cc 1% liquid lidocaine Procedure list: Dr. Fidel Noble Procedure: The patient was draped and prepped in a sterile fashion. Following the injection of the lidocaine the LP needle was slowly introduced proximally 4 cm into the patient went clear appearing CSF fluid again to drip from the needle. At this time approximately 20 cc of CSF fluid was obtained and sent off for analysis. The patient tolerated the procedure well and noted a mild headache at the end of the procedure. He was then laid flat will be kept there for the next 2 hours. Complications: None
[2017-05-20 17:46] LABS: CSF APPEARANCE CLEAR; CSF COLOR COLORLESS; CSF XANTHOCHROMIC NO XANTHOCHROMIA
[2017-05-20 18:02] LABS: CSF TOTAL PROTEIN 33.3 mg/dl (15.0-45.0)
[2017-05-20 18:19] LABS: CSF CHEMISTRY TUBE # 2
[2017-05-20] MEDS ORDERED: NURSING VERBAL MED ORDER ONE (19:15)
[2017-05-20] MEDS ORDERED: TUBERCULIN SKIN TEST 5 TU in SYRINGE 0 ML ID ONE (20:00)
[2017-05-20 23:08] VITALS: BP 104/66; PULSE 59; TEMP 36.7; O2SAT 98
[2017-05-21 07:42] VITALS: BP 99/63; PULSE 61; TEMP 36.7; O2SAT 99
[2017-05-21 08:45] VITALS: O2SAT 99
[2017-05-21] MEDS: RANITIDINE HCL 150 MG TAB PO SCH (09:18)
[2017-05-21] MEDS: ACETAMINOPHEN 325 MG TAB PO PRN (09:23)
--- NOTE | 2017-05-21 11:52 | Family Medicine Progress Note ---
Progress Note Date of Service May 21, 2017. Subjective Pt evaluation today including: conversation w/ patient, physical exam, chart review, conversation w/ application security consultant, review of inpatient medication list Pain: mild PO Intake: good Voiding: no voiding problems His abdominal pain has improved after starting zantac. Denies any nausea or vomiting he is having minimal pain over LP site and is having a mild headache He has not been coughing He has not had any fevers or chills Constitutional: No fever, No chills, No sweats ENT: No hearing loss, No sore throat Respiratory: No cough, No shortness of breath Cardiovascular: No chest pain, No palpitations Abdomen: No pain, No nausea, No vomiting, No diarrhea, No constipation Musculoskeletal: No joint pain, No muscle pain Male : No dysuria Endo: + fatigue Skin: No itch, No new/changing skin lesions Medications Current Inpatient Medications Medications (Trade) Dose Ordered Sig/Ella Route Start Time Stop Time Status Last Admin Dose Admin Acetaminophen (Tylenol Tab) 650 mg Q4H PRN PO 05/20/17 00:00 06/19/17 00:00 05/21/17 09:23 650 MG Magnesium Hydroxide (Milk Of Magnesia Susp) 30 ml Q6H PRN PO 05/20/17 00:00 06/19/17 00:00 Zolpidem Tartrate (Ambien Tab) 5 mg HSZ PRN PO 05/20/17 00:00 06/19/17 00:00 Ondansetron HCl (Zofran Inj) 4 mg Q6H PRN IV 05/20/17 00:00 06/19/17 00:00 Ranitidine HCl (zANTac TAB) 150 mg QAM PO 05/21/17 08:00 06/20/17 07:59 05/21/17 09:18 150 MG Miscellaneous (Ppd Check) 1 ea Q48H N/A 05/22/17 20:00 05/22/17 20:01 Objective Vital Signs Date Time Temp Pulse Resp B/P (MAP) Pulse Ox O2 Delivery O2 Flow Rate FiO2 05/21/17 08:45 99 Room Air 05/21/17 07:42 36.7 61 16 99/63 (75) 99 Room Air 05/21/17 00:01 Room Air 05/20/17 23:08 36.7 59 18 104/66 (79) 98 Room Air 05/20/17 20:00 Room Air 05/20/17 16:01 36.7 64 16 112/76 (88) 98 Room Air 05/20/17 16:00 Room Air Physical Exam General Appearance: WD/WN, no apparent distress Notes: General Appearance: WD/WN, no apparent distress ENT: hearing grossly normal, pharynx normal Neck: supple, no adenopathy, no carotid bruits, trachea midline Respiratory/Chest: lungs clear, normal breath sounds, no respiratory distress, no accessory muscle use, + pertinent finding (has a small nodule on anterior of left chest) Cardiovascular: regular rate, rhythm, no edema, no JVD, no murmur Abdomen: normal bowel sounds, non tender, soft, Extremities: non-tender, no pedal edema, no calf tenderness Neurologic/Psychiatric: alert, normal mood/affect, oriented x 3 Laboratory Results Results Past 24 Hours Test 05/20/17 14:01 05/20/17 17:20 Range/Units CSF Color COLORLESS CSF Appearance CLEAR CSF WBC 2 0-5 /uL CSF RBC 0 0 /uL CSF Xanthrochromic NO XANTHOCHROMIA CSF Cell Count Tube # 3 CSF Chemistry Tube # 2 CSF Glucose 74 40-70 mg/dl CSF Total Protein 33.3 15.0-45.0 mg/dl Microbiology Results 05/20/17 Gram Stain - Final, Resulted 05/20/17 CSF Culture - Preliminary, Resulted NO GROWTH TO DATE. 05/20/17 Fungal Culture, Received Pending Assessment and Plan 32 yo M initially presented for evaluation of a sebaceous cyst, found to potentially have latent TB until proven otherwise. Potential for latent TB - Quantiferon test ordered - Pulmonary consulted - ordered a skin biopsy of nodule on chest, LP with normal results - Infectious Diseases consulted - ordered AFB sputum culture and smear, unable to produce sputum. will likely need bronch by pulm - CB to be contacted - Negative pressure room and droplet precautions (this was started upon his arrival to the ED) - HIV, Hep B and Hep C to be ordered tomorrow Abdominal pain - zantac PO External haemmorhoids - anusol q6 Get social work to do MA application as patient has no insurance Resident Physician Supervision Note: I was present with GPY2 Dr. Boo Noble during the history and exam. I discussed the case with the resident and agree with the findings and plan as documented in the note. Any exceptions or clarifications are listed here: none. Pt continues with mild abdominal discomfort. Through the Gamma Ray Operator he states it is often worse with food. He has not had the anusol cream yet. Reports "bumps" on his scrotal area. No fever, chills. Appetite is normal. VSS no fever gen - NAD heart - RRR, s1, s2 lungs - CTA b/l abd - soft, no HSM, NT, ND, BS+ skin - cyst left chest wall w/o signs of infection ext - no edema - 2 or 3 small follicular pustules on inner thigh CT chest and cxr findings reviewed A/P: Possible active tuberculosis; ?disseminated? External hemorrhoid. Headaches - chronic. LP and CT head normal. Folliculitis - groin region - reassurance. Abd pain in setting of hemorrhoid - likely constipation - will obtain KUB x-ray ; miralax. Agree if unable to produce sputum for AFB will need bronch. HIV verbal consent obtained for HIV testing. FNA of skin lesion tomorrow to r/o disseminated TB. SW consult - has no health insurance. Documented By: Pedro Cain MD Continued [facility] stay due to: home environment unsafe for pt
[2017-05-21 16:15] VITALS: O2SAT 97
[2017-05-21 16:16] VITALS: BP 103/65; PULSE 62; TEMP 36.7; O2SAT 97
--- NOTE | 2017-05-21 17:42 | Pulmonology Progress Note ---
Pulmonary Progress Note Date of Service May 21, 2017. Attending Dr. Arroyo Subjective Patient notes he has no pulmonary complaints over the last 24 hours. He currently denies: Fever, chills, night sweats, hemoptysis or any cough Objective Patient looks well he is able to ambulate throughout the room with no signs of respiratory insufficiency or distress: VS: SaO2: 97-99 FiO2: RA RR: 16-18 Temp: 63.7 max RESP: Clear to auscultation bilaterally CARD: S1-S2 regular rate and rhythm EXT: No clubbing no cyanosis no edema PPD site: No signs of induration or edema at this time LABS: PPD placement: HIV panel: Pending Hepatitis panels: Pending QuantiFERON Gold: Pending CSF Fluid: Appearance/color: Clear WBCs: 2 (WNL) RBC: 0 (WNL) GLU: 74 (WNL: ratio: 082) T-Pro: 33.3 (WNL) Cultures: Pending Sputum: none documented in the system at this time Chest x-ray: Within normal limits/no acute disease noted Assessment & Plan 32-year-old gentleman admitted for rule out of tuberculosis: #1 Tuberculosis: Patient does have a social history as well as clinical history suggestive of tuberculosis. This time we are still working up the patient for tuberculosis both latent and/or active. QuantiFERON Gold studies still pending and he does have a PPD placed but we do not have control zero [facility]. We are also waiting on workup for HIV and hepatitis titers. At this time the patient should continue in isolation. I discard the lab and there is no sputum samples for analysis at this time. We'll have to be more aggressive about obtaining proper sputum samples every morning. At this time we' ll wait the PPD and if it is positive we'll consider the patient with active tuberculosis until proven otherwise. If the PPD is negative we'll still have to wait on the QuantiFERON Gold to determine if patient has a proper immune response as we have no control skin testing at [facility]. If we are unable to obtain a proper sputum sample patient may have to undergo bronchoscopy. Studies of shown that one bronchoscopy followed by every 8 induce sputum's is equal to 3 morning sputums. Studies of also shown that bronchoscopy with BAL and transbronchial biopsies as an increased rate of sensitivity of 81% . At this time I will leave it up to the pulmonary team rounding next week. Data Medications: Current Inpatient Medications Medications (Trade) Dose Ordered Sig/Ella Route Start Time Stop Time Status Last Admin Dose Admin Acetaminophen (Tylenol Tab) 650 mg Q4H PRN PO 05/20/17 00:00 06/19/17 00:00 05/21/17 09:23 650 MG Magnesium Hydroxide (Milk Of Magnesia Susp) 30 ml Q6H PRN PO 05/20/17 00:00 06/19/17 00:00 Zolpidem Tartrate (Ambien Tab) 5 mg HSZ PRN PO 05/20/17 00:00 06/19/17 00:00 Ondansetron HCl (Zofran Inj) 4 mg Q6H PRN IV 05/20/17 00:00 06/19/17 00:00 Ranitidine HCl (zANTac TAB) 150 mg QAM PO 05/21/17 08:00 06/20/17 07:59 05/21/17 09:18 150 MG Miscellaneous (Ppd Check) 1 ea Q48H N/A 05/22/17 20:00 05/22/17 20:01 Hydrocortisone (Proctozone Hc 2.5% Crm) 1 appln Q6H EXT 05/21/17 18:00 06/20/17 17:59 Vital Signs: Date Time Temp Pulse Resp B/P (MAP) Pulse Ox O2 Delivery O2 Flow Rate FiO2 05/21/17 16:16 36.7 62 18 103/65 (78) 97 Room Air 05/21/17 16:15 97 Room Air 05/21/17 08:45 99 Room Air 05/21/17 07:42 36.7 61 16 99/63 (75) 99 Room Air 05/21/17 00:01 Room Air 05/20/17 23:08 36.7 59 18 104/66 (79) 98 Room Air 05/20/17 20:00 Room Air
--- NOTE | 2017-05-21 18:14 | DIAGNOSTIC IMAGING REPORT ---
KUB CLINICAL HISTORY: Generalized abdominal pain. Constipation. FINDINGS: 2 AP supine abdominal radiograph are obtained. Correlation is made with chest CT dated 05/19/2017. There is a nonobstructed abdominal bowel gas pattern noting moderate colonic fecal retention. No evidence of intraperitoneal free air is seen on these supine views. There are no abnormal abdominal calcifications. There is no evidence of mass effect or organomegaly. The bony structures appear intact. Calcified granuloma is again seen at the right lung base. IMPRESSION: Nonobstructed abdominal bowel gas pattern noting moderate constipation. Electronically signed by: Santiago Shepherd M.D. 05/21/2017 6:13 PM Dictated Date/Time: 05/21/2017 6:12 PM
[2017-05-21] MEDS: POLYETHYLENE (MIRALAX) 17 GM PACK PO SCH (20:00)
[2017-05-21] MEDS: HYDROCORTISONE HC 2.5% CRM 30GM TUBE EXT SCH (21:33)
[2017-05-21 23:15] VITALS: BP 100/63; PULSE 60; TEMP 36.7; O2SAT 98
[2017-05-22] MEDS: HYDROCORTISONE HC 2.5% CRM 30GM TUBE EXT SCH ×4 (05:51→18:29)
[2017-05-22] MEDS: ACETAMINOPHEN 325 MG TAB PO PRN (05:55)
[2017-05-22] MEDS: POLYETHYLENE (MIRALAX) 17 GM PACK PO SCH (06:01)
[2017-05-22 07:35] VITALS: BP 96/60; PULSE 61; TEMP 36.6; O2SAT 99
[2017-05-22] MEDS: RANITIDINE HCL 150 MG TAB PO SCH (08:03)
--- NOTE | 2017-05-22 10:10 | Progress Note ---
Subjective Date of Service: May 22, 2017. Subjective pt underwent lp, only 2 wbc, gram stain csf culture negative. blood cultures negative. no f/c. IGRA pending, HIV negative. sputum ordered, pending. no overnight events. Problem List Medical Problems: (1) Skin lesion of chest wall Status: Acute (2) Tuberculosis Status: Acute Objective Vital Signs Date Time Temp Pulse Resp B/P (MAP) Pulse Ox O2 Delivery O2 Flow Rate FiO2 05/22/17 08:30 Room Air 05/22/17 07:35 36.6 61 16 96/60 (72) 99 Room Air 05/22/17 00:00 Room Air 05/21/17 23:15 36.7 60 18 100/63 (75) 98 Room Air 05/21/17 20:00 Room Air 05/21/17 16:16 36.7 62 18 103/65 (78) 97 Room Air 05/21/17 16:15 97 Room Air Laboratory Results Item Value Date Time Gram Stain - Final Complete 05/20/17 1720 Cerebral Spinal Fluid HIV (1&2) Ab and P24 Ag, 4th Gener NEG 05/22/17 0538 CSF WBC 2 /uL 05/20/17 1720 Last 24 Hours Test 05/22/17 05:38 HIV (1&2) Ab and P24 Ag, 4th Gener NEG Assessment and Plan (1) Lung granuloma Assessment & Plan: await sputum afb, IGRA results. If unable to produce sputum , will need bronch. Continued [facility] stay due to: home environment unsafe for pt
[2017-05-22 10:17] LABS: HEPATITIS B AB NEG
--- NOTE | 2017-05-22 10:18 | Pulmonology Progress Note ---
Pulmonary Progress Note Date of Service May 22, 2017. Attending Christoph Dugan Patient seen and examined. He denies any fever, chills, cough, shortness of breath or chest pain. States that headache has resolved with Tylenol. Objective 32-yo Norwegian Ivorian speaking male admitted through [facility] ER 05/19/17 with 6-7 month h/o arthralgias, fevers, enlarging left anterior chest lesion, and cough + hemoptysis (1-2x / month - past 3-months). Prior h/o includes: incarceration x 1-month- [place] and former tobacco. 05/20/17: LP completed PPD placed 05/22/17 CXR 05/19/17: calcified granuloma: right lung base CT chest 05/19/17: RLL calcified granuloma. No adenopathy - prominent node. 1.5cm sebaceous cyst ventral left chest wall. Today: -98-99%: RA - Afebrile, HD stable - Quant Gold: pending - Sputum 05/21/17: Pending - CSF 05/20/17: pending Physical Exam: Constitutional Exam: AAOx3, NAD HEENT: AT/NC, PERRL, EOMI, LN: no cervical lymphadenopathy CVS: S1, S2, RRR Lungs: CTA b/l, no crackles, no wheezes Abd: soft, NT/ND, BS+ Ext: no edema b/l, no clubbing, no cyanosis Assessment & Plan 32-year-old gentleman admitted for rule out of tuberculosis: # 1. Cough with unclear history of hemoptysis. Patient currently denying fever, chills or night sweats. He does admit to pleuritic chest pain with deep inspiration. He is currently being ruled out for tuberculosis as he does come from endemic area and has history of incarceration previously. -f/u PPD -f/u quantiferon gold -AFB sputum x3 - f/u chest ,lesion pathology If positive with start full RIPE therapy. If patient has LTBI will suggest prophylactic INH treatment. If patient should have recurrent hemoptysis will consider bronchoscopy as an outpatient. Data Medications: Current Inpatient Medications Medications (Trade) Dose Ordered Sig/Ella Route Start Time Stop Time Status Last Admin Dose Admin Acetaminophen (Tylenol Tab) 650 mg Q4H PRN PO 05/20/17 00:00 06/19/17 00:00 05/22/17 05:55 650 MG Magnesium Hydroxide (Milk Of Magnesia Susp) 30 ml Q6H PRN PO 05/20/17 00:00 06/19/17 00:00 Zolpidem Tartrate (Ambien Tab) 5 mg HSZ PRN PO 05/20/17 00:00 06/19/17 00:00 Ondansetron HCl (Zofran Inj) 4 mg Q6H PRN IV 05/20/17 00:00 06/19/17 00:00 Ranitidine HCl (zANTac TAB) 150 mg QAM PO 05/21/17 08:00 06/20/17 07:59 05/22/17 08:03 150 MG Miscellaneous (Ppd Check) 1 ea Q48H N/A 05/22/17 20:00 05/22/17 20:01 Hydrocortisone (Proctozone Hc 2.5% Crm) 1 appln Q6H EXT 05/21/17 18:00 06/20/17 17:59 05/22/17 05:51 1 APPLN Polyethylene (Miralax Powder Packet) 17 gm BID PO 05/21/17 20:00 06/20/17 19:59 05/22/17 06:01 17 GM Vital Signs: Date Time Temp Pulse Resp B/P (MAP) Pulse Ox O2 Delivery O2 Flow Rate FiO2 05/22/17 08:30 Room Air 05/22/17 07:35 36.6 61 16 96/60 (72) 99 Room Air 05/22/17 00:00 Room Air 05/21/17 23:15 36.7 60 18 100/63 (75) 98 Room Air 05/21/17 20:00 Room Air 05/21/17 16:16 36.7 62 18 103/65 (78) 97 Room Air 05/21/17 16:15 97 Room Air Laboratory Results: Last 24 Hours Test 05/22/17 05:38 HIV (1&2) Ab and P24 Ag, 4th Gener NEG
--- NOTE | 2017-05-22 15:57 | Family Medicine Progress Note ---
Progress Note Date of Service May 22, 2017. Subjective Pt evaluation today including: conversation w/ patient, physical exam, conversation w/ automotive internet sales consultant, review of inpatient medication list Pain: none PO Intake: good Voiding: no voiding problems Patient with no complaints overnight He says he has a bit of a headache and when asked if he needs medications he says no He had his skin biopsy done yesterday and the results of this are still pending. He is also complaining of some mild abdominal pain, which is likely from the moderate constipation found on his KUB Constitutional: No fever, No chills Respiratory: No cough, No shortness of breath Cardiovascular: No chest pain Abdomen: + pain, No nausea, No vomiting, No diarrhea, No constipation Musculoskeletal: No joint pain, No muscle pain Skin: No rash, No new/changing skin lesions Medications Current Inpatient Medications Medications (Trade) Dose Ordered Sig/Ella Route Start Time Stop Time Status Last Admin Dose Admin Acetaminophen (Tylenol Tab) 650 mg Q4H PRN PO 05/20/17 00:00 06/19/17 00:00 05/22/17 05:55 650 MG Magnesium Hydroxide (Milk Of Magnesia Susp) 30 ml Q6H PRN PO 05/20/17 00:00 06/19/17 00:00 Zolpidem Tartrate (Ambien Tab) 5 mg HSZ PRN PO 05/20/17 00:00 06/19/17 00:00 Ondansetron HCl (Zofran Inj) 4 mg Q6H PRN IV 05/20/17 00:00 06/19/17 00:00 Ranitidine HCl (zANTac TAB) 150 mg QAM PO 05/21/17 08:00 06/20/17 07:59 05/22/17 08:03 150 MG Miscellaneous (Ppd Check) 1 ea Q48H N/A 05/22/17 20:00 05/22/17 20:01 Hydrocortisone (Proctozone Hc 2.5% Crm) 1 appln Q6H EXT 05/21/17 18:00 06/20/17 17:59 05/22/17 11:58 1 APPLN Polyethylene (Miralax Powder Packet) 17 gm BID PO 05/21/17 20:00 06/20/17 19:59 05/22/17 06:01 17 GM Objective Vital Signs Date Time Temp Pulse Resp B/P (MAP) Pulse Ox O2 Delivery O2 Flow Rate FiO2 05/22/17 08:30 Room Air 05/22/17 07:35 36.6 61 16 96/60 (72) 99 Room Air 05/22/17 00:00 Room Air 05/21/17 23:15 36.7 60 18 100/63 (75) 98 Room Air 05/21/17 20:00 Room Air 05/21/17 16:16 36.7 62 18 103/65 (78) 97 Room Air 05/21/17 16:15 97 Room Air Physical Exam General Appearance: WD/WN, no apparent distress Neck: supple, no JVD, trachea midline Respiratory/Chest: lungs clear, no respiratory distress, no accessory muscle use, + pertinent finding (has a bandage over anterior chest from where biopsy was taken) Cardiovascular: regular rate, rhythm, no edema, no murmur Abdomen: normal bowel sounds, non tender, soft Neurologic/Psychiatric: no motor/sensory deficits, alert, oriented x 3 Laboratory Results Results Past 24 Hours Test 05/22/17 05:38 Range/Units Hepatitis B Surface Antibody NEG Hepatitis C Antibody NEG NEG HIV (1&2) Ab and P24 Ag, 4th Gener NEG NEG Microbiology Results 05/22/17 Acid Fast Stain, Received Pending 05/22/17 Mycobacterial Culture, Received Pending 05/21/17 Acid Fast Stain, Received Pending 05/21/17 Mycobacterial Culture, Received Pending Assessment and Plan 32 yo M initially presented for evaluation of a sebaceous cyst, found to potentially have latent TB until proven otherwise. Potential for latent TB - Quantiferon test ordered - skin biopsy pending - PPD given at 4pm yesterday, will check result - ordered AFB sputum culture and smear pending, if unable to produce sputum. will likely need bronch by pulm - CB to be contacted - Negative pressure room and droplet precautions (this was started upon his arrival to the ED) - HIV, Hep B and Hep C pending Abdominal pain - zantac PO - milk of mag and miralax ordered for AB pain External haemmorhoids - anusol q6 Resident Physician Supervision Note: I interviewed and examined the patient. Discussed with Dr. Noble and agree with findings and plan as documented in the note. Any exceptions or clarifications are listed here: None Documented By: Prince Wali not too much pain after bx. doesn't need meds. otherwise feeling OK just wonders how long w/u is going to take. has some abdominal pain. seems to relate to constipation. all other ROS otherwise negative except for as above vitals noted nad chest lesion clean without bleeding or hematoma, no pallor or icterus possible Tb - await path on chest lesion, hopefully will get sputum adequate for AFB but looking like may need bronch otherwise as above Continued [facility] stay due to: other
[2017-05-22 16:09] VITALS: BP 104/70; PULSE 70; TEMP 36.7; O2SAT 98
[2017-05-22] MEDS ORDERED: MAGNESIUM HYDROXIDE SUSP 30 ML UDC PO ONE (16:30)
[2017-05-22] MEDS ORDERED: POLYETHYLENE (MIRALAX) 17 GM PACK PO ONE (16:30)
[2017-05-22] MEDS: PPD CHECK SCH (20:00)
[2017-05-22 23:33] VITALS: BP 100/63; PULSE 55; TEMP 36.3; O2SAT 99
[2017-05-23] MEDS: HYDROCORTISONE HC 2.5% CRM 30GM TUBE EXT SCH ×4 (00:11→16:59)
[2017-05-23 07:50] VITALS: BP 106/64; PULSE 62; TEMP 36.8; O2SAT 96
[2017-05-23] MEDS: RANITIDINE HCL 150 MG TAB PO SCH (08:03)
[2017-05-23] MEDS: POLYETHYLENE (MIRALAX) 17 GM PACK PO SCH (08:03)
--- NOTE | 2017-05-23 09:36 | Family Medicine Progress Note ---
Progress Note Date of Service May 23, 2017. Subjective Pt evaluation today including: conversation w/ patient, physical exam, chart review, lab review, conversation w/ program consultant, review of inpatient medication list Pain: none PO Intake: good Patient feeling back to baseline today. No longer having any abdominal pain. Still has a very mild headache. He is wondering how many more days he needs to stay in the hospital. His PPD was 9 yesterday in its measurement. This would be a positive result Constitutional: No fever, No chills Respiratory: No cough, No hemoptysis Cardiovascular: No chest pain, No edema Abdomen: No pain, No nausea, No vomiting, No diarrhea, No constipation Musculoskeletal: No joint pain Skin: No rash, No itch Medications Current Inpatient Medications Medications (Trade) Dose Ordered Sig/Ella Route Start Time Stop Time Status Last Admin Dose Admin Acetaminophen (Tylenol Tab) 650 mg Q4H PRN PO 05/20/17 00:00 06/19/17 00:00 05/22/17 05:55 650 MG Magnesium Hydroxide (Milk Of Magnesia Susp) 30 ml Q6H PRN PO 05/20/17 00:00 06/19/17 00:00 Zolpidem Tartrate (Ambien Tab) 5 mg HSZ PRN PO 05/20/17 00:00 06/19/17 00:00 Ondansetron HCl (Zofran Inj) 4 mg Q6H PRN IV 05/20/17 00:00 06/19/17 00:00 Ranitidine HCl (zANTac TAB) 150 mg QAM PO 05/21/17 08:00 06/20/17 07:59 05/23/17 08:03 150 MG Hydrocortisone (Proctozone Hc 2.5% Crm) 1 appln Q6H EXT 05/21/17 18:00 06/20/17 17:59 05/23/17 05:36 1 APPLN Polyethylene (Miralax Powder Packet) 17 gm DAILY PO 05/23/17 08:00 06/22/17 07:59 05/23/17 08:03 17 GM Objective Vital Signs Date Time Temp Pulse Resp B/P (MAP) Pulse Ox O2 Delivery O2 Flow Rate FiO2 05/23/17 08:30 Room Air 05/23/17 07:50 36.8 62 16 106/64 (78) 96 05/23/17 00:00 Room Air 05/22/17 23:33 36.3 55 16 100/63 (75) 99 Room Air 05/22/17 20:00 Room Air 05/22/17 17:00 Room Air 05/22/17 16:09 36.7 70 18 104/70 (81) 98 Room Air Physical Exam General Appearance: WD/WN, no apparent distress Neck: supple, no adenopathy, no JVD Respiratory/Chest: lungs clear, normal breath sounds, no respiratory distress, no accessory muscle use Cardiovascular: regular rate, rhythm, no JVD, no murmur Abdomen: normal bowel sounds, non tender, soft Extremities: normal range of motion, non-tender, no calf tenderness Neurologic/Psychiatric: alert, normal mood/affect, oriented x 3 Skin: normal color, warm/dry, no rash Laboratory Results Microbiology Results 05/23/17 Acid Fast Stain, Received Pending 05/23/17 Mycobacterial Culture, Received Pending Assessment and Plan 32 yo M initially presented for evaluation of a sebaceous cyst, found to potentially have latent TB until proven otherwise. 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 POSITIVE - ordered AFB sputum culture and smear pending, ordered saline nebs to help with expectorant of sputum------>. will likely need bronch by pulm as sputum has been mostly saliva and will not be adequate for testing - Negative pressure room and droplet precautions (this was started upon his arrival to the ED) - HIV, Hep B and Hep C pending Abdominal pain - zantac PO - milk of mag and miralax ordered for AB pain External haemmorhoids - anusol q6 Resident Physician Supervision Note: I interviewed and examined the patient. Discussed with Dr. Noble and agree with findings and plan as documented in the note. Any exceptions or clarifications are listed here: None Documented By: Prince Keyes feeling better still a dull headache and still some constipation related abodminal pain but otherwise doing better. more success on IT connection with day care worker but still subpar - was able to explain plan to pt some, he also called his friend who speaks divehi and had me talk to him as well - in pt's presence and with pt's permission. all other ROS otherwise negative except for as above vitls noted nad breathing unlabored no pallor or icterus benign skin lesion - bx neg for granulomas possible Tb - due to PPD, CXR findings and risk - ID notes needing to treat. pending last AFB hopefully waste duster go home tomorrow Continued [facility] stay due to: other
[2017-05-23] MEDS ORDERED: SODIUM CHLORIDE 0.9% NEBU SOLN 3 ML NEB INH ONE (10:00)
--- NOTE | 2017-05-23 11:21 | Pulmonology Progress Note ---
Pulmonary Progress Note Date of Service May 23, 2017. Attending Dr. Hawthorne Subjective Patient seen and examined this morning. He states that he has mild headache. Denies chest pain, shortness of breath, cough or hemoptysis. Wondering when he can go home. Objective 32-yo [place]an Romansh speaking male admitted through [facility] 05/19/17 with 6-7 month h/o arthralgias, fevers, enlarging left anterior chest lesion, and cough + hemoptysis (1-2x / month - past 3-months). Prior h/o includes: incarceration x 1-month- [place] and former tobacco. 05/20/17: LP completed PPD placed 05/22/17 CXR 05/19/17: calcified granuloma: right lung base CT chest 05/19/17: RLL calcified granuloma. No adenopathy - prominent node. 1.5cm sebaceous cyst ventral left chest wall. Today: -98-99%: RA - Afebrile, HD stable - Quant Gold: pending - AFB Sputum x2 negative Physical Exam: Constitutional Exam: AAOx3, NAD HEENT: AT/NC, PERRL, EOMI, LN: no cervical lymphadenopathy CVS: S1, S2, RRR Lungs: CTA b/l, no crackles, no wheezes Abd: soft, NT/ND, BS+ Ext: no edema b/l, no clubbing, no cyanosis Assessment & Plan 32-year-old gentleman admitted for rule out of tuberculosis: 1. LTBI- Cough with unclear history of hemoptysis. Patient currently denying fever, chills or night sweats. He does admit to pleuritic chest pain with deep inspiration. He is currently being ruled out for pulmonary tuberculosis as he does come from endemic area and has history of incarceration previously. CXR significant for small calcified granuloma. PPD positive with duration of 9 mm. AFB x2 negative thus far. Pulmonary TB unlikely. If last AFB is negative will recommend outpatient follow up to start LTBI prophylactic treatment. Can be discharged from a pulmonary standpoint. Should he have recurrent hemoptysis will consider bronchoscopy as an outpatient. 2. Chest wall Lesion- Biopsy shows spindle cells. Negative for granulomatous inflammation. Recommend outpatient follow up. Data Medications: Current Inpatient Medications Medications (Trade) Dose Ordered Sig/Ella Route Start Time Stop Time Status Last Admin Dose Admin Acetaminophen (Tylenol Tab) 650 mg Q4H PRN PO 05/20/17 00:00 06/19/17 00:00 05/22/17 05:55 650 MG Magnesium Hydroxide (Milk Of Magnesia Susp) 30 ml Q6H PRN PO 05/20/17 00:00 06/19/17 00:00 Zolpidem Tartrate (Ambien Tab) 5 mg HSZ PRN PO 05/20/17 00:00 06/19/17 00:00 Ondansetron HCl (Zofran Inj) 4 mg Q6H PRN IV 05/20/17 00:00 06/19/17 00:00 Ranitidine HCl (zANTac TAB) 150 mg QAM PO 05/21/17 08:00 06/20/17 07:59 05/23/17 08:03 150 MG Hydrocortisone (Proctozone Hc 2.5% Crm) 1 appln Q6H EXT 05/21/17 18:00 06/20/17 17:59 05/23/17 05:36 1 APPLN Polyethylene (Miralax Powder Packet) 17 gm DAILY PO 05/23/17 08:00 06/22/17 07:59 05/23/17 08:03 17 GM Sodium Chloride (Sodium Chloride 0.9% Neb Soln) 3 ml BIDR INH 05/23/17 20:00 06/22/17 19:59 Vital Signs: Date Time Temp Pulse Resp B/P (MAP) Pulse Ox O2 Delivery O2 Flow Rate FiO2 05/23/17 08:30 Room Air 05/23/17 07:50 36.8 62 16 106/64 (78) 96 05/23/17 00:00 Room Air 05/22/17 23:33 36.3 55 16 100/63 (75) 99 Room Air 05/22/17 20:00 Room Air 05/22/17 17:00 Room Air 05/22/17 16:09 36.7 70 18 104/70 (81) 98 Room Air
[2017-05-23] MEDS: ACETAMINOPHEN 325 MG TAB PO PRN (12:52)
[2017-05-23 15:12] VITALS: BP 104/64; PULSE 58; TEMP 36.7; O2SAT 99
--- NOTE | 2017-05-23 15:15 | Progress Note ---
Subjective Date of Service: May 23, 2017. Subjective Pt evaluation today including: conversation w/ patient, physical exam, chart review, lab review pt seen in follow up with assistance of medical interpretation from ipad. states he has had min 5 lb wt loss in last 2-3 months. remains with intermittent hemoptysis but denies any since admission. path report from chest mass without granuloma but no afb culture done. 2/3 sputum smears negative afb, third obtained this am and is pending. ppd place, 9mm induration, + cxr with r granuloma on ct. no f/c. csf culture negative, blood cultures negative. has h/o incarceration. no previous tb workup. denies any known tb contact but from endemic area. Currently asking to go home. denies cp, states sahu better, no cough currently. states abd pain improved. all remaining ros reviewed and are negative. Problem List Medical Problems: (1) Skin lesion of chest wall Status: Acute (2) Tuberculosis Status: Acute Objective Vital Signs Date Time Temp Pulse Resp B/P (MAP) Pulse Ox O2 Delivery O2 Flow Rate FiO2 05/23/17 08:30 Room Air 05/23/17 07:50 36.8 62 16 106/64 (78) 96 05/23/17 00:00 Room Air 05/22/17 23:33 36.3 55 16 100/63 (75) 99 Room Air 05/22/17 20:00 Room Air 05/22/17 17:00 Room Air 05/22/17 16:09 36.7 70 18 104/70 (81) 98 Room Air Physical Exam General Appearance: WD/WN, no apparent distress Eyes: normal inspection, EOMI Neck: supple Respiratory/Chest: lungs clear, normal breath sounds, no respiratory distress Cardiovascular: regular rate, rhythm, no edema Abdomen: non tender, soft Extremities: non-tender, no pedal edema Neurologic/Psychiatric: alert, oriented x 3 Skin: normal color Comments: ppd + Laboratory Results Item Value Date Time Acid Fast Stain - Final Resulted 05/21/17 1730 Sputum Expectorated Sputum Acid Fast Stain - Final Resulted 05/22/17 0615 Sputum Expectorated Sputum Gram Stain - Final Complete 05/20/17 1720 Cerebral Spinal Fluid Blood Culture - Preliminary Resulted 05/19/17 2105 Blood NO GROWTH TO DATE. Blood Culture - Preliminary Resulted 05/19/172004 Blood NO GROWTH TO DATE. Assessment and Plan (1) Lung granuloma Assessment & Plan: concerning for tb. He has ppd at 9mm with ct changes that could be c/w tb, >5mm induration would be + in this situation. He does have risk factors including recent wt loss, intermittent hemoptysis, + granuloma on ct chest, residence in endemic area and h/o incarceration. 2 sputum smears are negative, if third is negative, he can be removed from airborne and be d/c home , hopefully tomorrow. If sputum cultures negative at 8 weeks he would need treatment for LTBI with + ppd but with his current risk factors, I remain concerned that he could have active pulm tb with negative smears. In any event, he will require LTBI at some point (if sputum cultures negative), I had long discussion regarding his treatment options. I have suggested he begin treatment for tb and will follow in [facility] post d/c, he will need directly observed therapy ( DOT), this will need to be arranged prior to d/c. He will need follow up visit at [facility] to review culture results and continue followup. lfts nml on admission. will follow weekly labs as well. will start tb today, he is in agreement with this plan. d/w primary. Continued [facility] stay due to: other
[2017-05-23] MEDS: RIFAMPIN 300 MG CAP PO SCH (16:55)
[2017-05-23] MEDS: ETHAMBUTOL HCL 400 MG TAB PO SCH (16:55)
[2017-05-23] MEDS: PYRAZINAMIDE 500 MG TAB PO SCH (16:58)
[2017-05-23] MEDS: ISONIAZID 300 MG TAB PO SCH (16:59)
[2017-05-23] MEDS: SODIUM CHLORIDE 0.9% NEBU SOLN 3 ML NEB INH SCH (19:02)
[2017-05-24] VITALS: BP 91/60; PULSE 65; TEMP 36.3; O2SAT 98
[2017-05-24] MEDS: HYDROCORTISONE HC 2.5% CRM 30GM TUBE EXT SCH ×5 (05:59→23:17)
[2017-05-24 07:30] VITALS: BP 106/67; PULSE 68; TEMP 36.7; O2SAT 98
[2017-05-24] MEDS: PYRIDOXINE HCL 50 MG TAB PO SCH (07:33)
[2017-05-24] MEDS: RIFAMPIN 300 MG CAP PO SCH (07:33)
[2017-05-24] MEDS: RANITIDINE HCL 150 MG TAB PO SCH (07:33)
[2017-05-24] MEDS: POLYETHYLENE (MIRALAX) 17 GM PACK PO SCH (07:33)
[2017-05-24] MEDS: ISONIAZID 300 MG TAB PO SCH (07:33)
[2017-05-24] MEDS: ETHAMBUTOL HCL 400 MG TAB PO SCH (07:33)
[2017-05-24] MEDS: PYRAZINAMIDE 500 MG TAB PO SCH (07:33)
[2017-05-24 14:03] LABS: QUANTIF TB AG-NIL <0.00 IU/ML; QUANTIFERON NIL 0.05 IU/ML
--- NOTE | 2017-05-24 14:24 | Progress Note ---
Subjective Date of Service: May 24, 2017. Subjective spoke with [facility] this am, updated on case. will be doing intake for pt to transition at time of d/c to continue with emperic treatment for suspected pulm tb. +ppd, + ct chest with granuloma r lung, wt. loss, hemoptysis, incarceration , residence in high risk area. started on RIPE yesterday, tolerating. third sputum returned today, negative smear. csf and blood cultures negative. remains afebrile. no overnight events. Problem List Medical Problems: (1) Skin lesion of chest wall Status: Acute (2) Tuberculosis Status: Acute Objective Vital Signs Date Time Temp Pulse Resp B/P (MAP) Pulse Ox O2 Delivery O2 Flow Rate FiO2 05/24/17 08:00 Room Air 05/24/17 07:30 36.7 68 18 106/67 (80) 98 Room Air 05/24/17 00:10 Room Air 05/24/17 00:00 36.3 65 20 91/60 (70) 98 Room Air 05/23/17 20:00 Room Air 05/23/17 16:00 Room Air 05/23/17 15:12 36.7 58 16 104/64 (77) 99 Room Air Laboratory Results Item Value Date Time Acid Fast Stain - Final Resulted 05/22/17 0615 Sputum Expectorated Sputum Acid Fast Stain - Final Resulted 05/21/17 1730 Sputum Expectorated Sputum Blood Culture - Preliminary Resulted 05/19/17 2005 Blood NO GROWTH TO DATE. Blood Culture - Preliminary Resulted 05/19/17 2105 Blood NO GROWTH TO DATE. Gram Stain - Final Complete 05/20/17 1720 Cerebral Spinal Fluid Acid Fast Stain - Final Resulted 05/23/17 0610 Sputum Expectorated Sputum Assessment and Plan (1) Lung granuloma Assessment & Plan: continue rx for tb pending culture results. hiv negative, will follow sputums. to be eval by [facility] prior to d/c to set up home DOT and continued follow up for suspected TB. will follow in clinic on 06/16. IGRA negative but can still have pulm TB with negative IGRA. ppd + , will continue treatment and follow sputum cultures. if cultures negative at 8 weeks he will have received enough abx to treat for LTBI. will maintain in isolation pending d /c home, will d/c home on isolation until14 days DOT RIPE completed. spoke with primary. Continued [facility] stay due to: other
--- NOTE | 2017-05-24 14:45 | Pulmonology Progress Note ---
Pulmonary Progress Note Date of Service May 24, 2017. Attending Dr. Hawthorne Subjective Patient seen and examined. Has no complaints. Denies any fevers, chills, chest pain, cough, shortness of breath or hemoptysis. Started on RIPE therapy for possible culture negative TB. Objective 32-yo [place]er Persian speaking male admitted through [facility] 05/19/17 with 6-7 month h/o arthralgias, fevers, enlarging left anterior chest lesion, and cough + hemoptysis (1-2x / month - past 3-months). Prior h/o includes: incarceration x 1-month- [place] and former tobacco. Started on on RIPE therapy on 2016. Will on DOT for 8 weeks. 05/20/17: LP completed PPD placed 05/22/17--induration of 9mm CXR 05/19/17: calcified granuloma: right lung base CT chest 05/19/17: RLL calcified granuloma. No adenopathy - prominent node. 1.5cm sebaceous cyst ventral left chest wall. Today: - Afebrile, HD stable - Quant Gold: negative - AFB Sputum x 3negative Physical Exam: Constitutional Exam: AAOx3, NAD HEENT: AT/NC, PERRL, EOMI, LN: no cervical lymphadenopathy CVS: S1, S2, RRR Lungs: CTA b/l, no crackles, no wheezes Chest wall: raised lesions on anterior chest wall Abd: soft, NT/ND, BS+ Ext: no edema b/l, no clubbing, no cyanosis Assessment & Plan 32-year-old gentleman admitted for rule out of tuberculosis: 1. LTBI- Cough with unclear history of hemoptysis. Patient currently denying fever, chills or night sweats. He does admit to pleuritic chest pain with deep inspiration. He is currently being ruled out for pulmonary tuberculosis as he does come from endemic area and has history of incarceration previously. CXR significant for small calcified granuloma. PPD positive with duration of 9 mm. AFB x3 negative thus far. IGRA negative. Pulmonary TB unlikely. Patient started on RIPE therapy per ID. Will be followed by DOT. Should he have recurrent hemoptysis will consider bronchoscopy as an outpatient. 2. Chest wall Lesion- Biopsy shows spindle cells. Negative for granulomatous inflammation. Recommend outpatient follow up. Appreciate the consult. Pulmonary sign off case at this point. Please feel free to reconsult if you have any further questions or concerns. Data Medications: Current Inpatient Medications Medications (Trade) Dose Ordered Sig/Ella Route Start Time Stop Time Status Last Admin Dose Admin Acetaminophen (Tylenol Tab) 650 mg Q4H PRN PO 05/20/17 00:00 06/19/17 00:00 05/23/17 12:52 650 MG Magnesium Hydroxide (Milk Of Magnesia Susp) 30 ml Q6H PRN PO 05/20/17 00:00 06/19/17 00:00 Zolpidem Tartrate (Ambien Tab) 5 mg HSZ PRN PO 05/20/17 00:00 06/19/17 00:00 Ondansetron HCl (Zofran Inj) 4 mg Q6H PRN IV 05/20/17 00:00 06/19/17 00:00 Ranitidine HCl (zANTac TAB) 150 mg QAM PO 05/21/17 08:00 06/20/17 07:59 05/24/17 07:33 150 MG Hydrocortisone (Proctozone Hc 2.5% Crm) 1 appln Q6H EXT 05/21/17 18:00 06/20/17 17:59 05/24/17 05:59 1 APPLN Polyethylene (Miralax Powder Packet) 17 gm DAILY PO 05/23/17 08:00 06/22/17 07:59 05/24/17 07:33 17 GM Sodium Chloride (Sodium Chloride 0.9% Neb Soln) 3 ml BIDR INH 05/23/17 20:00 06/22/17 19:59 05/23/17 19:02 3 ML Isoniazid (Isoniazid Tab) 300 mg QAM PO 05/23/17 16:00 06/22/17 15:59 05/24/17 07:33 300 MG Rifampin (Rifadin Cap) 600 mg QAM PO 05/23/17 16:00 05/30/17 15:59 05/24/17 07:33 600 MG Ethambutol HCl (Myambutol Tab) 1,200 mg DAILY PO 05/23/17 16:00 06/22/17 15:59 05/24/17 07:33 1,200 MG Pyrazinamide (Pyrazinamide Tab) 1,500 mg QAM PO 05/23/17 16:00 06/22/17 15:59 05/24/17 07:33 1,500 MG Pyridoxine HCl (Vitamin B-6 Tab) 50 mg QAM PO 05/24/17 08:00 06/23/17 07:59 05/24/17 07:33 50 MG I & O: 24-Hour Column 05/25/17 07:59 Intake Total 980 ml Output Total 350 ml Balance 630 ml Vital Signs: Date Time Temp Pulse Resp B/P (MAP) Pulse Ox O2 Delivery O2 Flow Rate FiO2 05/24/17 08:00 Room Air 05/24/17 07:30 36.7 68 18 106/67 (80) 98 Room Air 05/24/17 00:10 Room Air 05/24/17 00:00 36.3 65 20 91/60 (70) 98 Room Air 05/23/17 20:00 Room Air 05/23/17 16:00 Room Air 05/23/17 15:12 36.7 58 16 104/64 (77) 99 Room Air
[2017-05-24 15:46] VITALS: BP 110/71; PULSE 71; TEMP 36.6; O2SAT 99
--- NOTE | 2017-05-24 16:46 | Family Medicine Progress Note ---
Progress Note Date of Service May 24, 2017. Subjective Pt evaluation today including: conversation w/ patient, physical exam, chart review, conversation w/ research consultant, review of inpatient medication list Pain: none PO Intake: good Voiding: no voiding problems Patient is feeling good today He's wondering when he will go home Explained to him that he will be going home tomorrow after the nurses see him and get him set up with TB treatment at home Constitutional: No fever, No chills Respiratory: No cough, No shortness of breath, No hemoptysis Cardiovascular: No chest pain Abdomen: No pain, No nausea, No vomiting, No diarrhea, No constipation Musculoskeletal: No joint pain, No muscle pain Skin: No rash, No itch, No new/changing skin lesions Medications Current Inpatient Medications Medications (Trade) Dose Ordered Sig/Ella Route Start Time Stop Time Status Last Admin Dose Admin Acetaminophen (Tylenol Tab) 650 mg Q4H PRN PO 05/20/17 00:00 06/19/17 00:00 05/23/17 12:52 650 MG Magnesium Hydroxide (Milk Of Magnesia Susp) 30 ml Q6H PRN PO 05/20/17 00:00 06/19/17 00:00 Zolpidem Tartrate (Ambien Tab) 5 mg HSZ PRN PO 05/20/17 00:00 06/19/17 00:00 Ondansetron HCl (Zofran Inj) 4 mg Q6H PRN IV 05/20/17 00:00 06/19/17 00:00 Ranitidine HCl (zANTac TAB) 150 mg QAM PO 05/21/17 08:00 06/20/17 07:59 05/24/17 07:33 150 MG Hydrocortisone (Proctozone Hc 2.5% Crm) 1 appln Q6H EXT 05/21/17 18:00 06/20/17 17:59 05/24/17 05:59 1 APPLN Polyethylene (Miralax Powder Packet) 17 gm DAILY PO 05/23/17 08:00 06/22/17 07:59 05/24/17 07:33 17 GM Sodium Chloride (Sodium Chloride 0.9% Neb Soln) 3 ml BIDR INH 05/23/17 20:00 06/22/17 19:59 05/23/17 19:02 3 ML Isoniazid (Isoniazid Tab) 300 mg QAM PO 05/23/17 16:00 06/22/17 15:59 05/24/17 07:33 300 MG Rifampin (Rifadin Cap) 600 mg QAM PO 05/23/17 16:00 05/30/17 15:59 05/24/17 07:33 600 MG Ethambutol HCl (Myambutol Tab) 1,200 mg DAILY PO 05/23/17 16:00 06/22/17 15:59 05/24/17 07:33 1,200 MG Pyrazinamide (Pyrazinamide Tab) 1,500 mg QAM PO 05/23/17 16:00 06/22/17 15:59 05/24/17 07:33 1,500 MG Pyridoxine HCl (Vitamin B-6 Tab) 50 mg QAM PO 05/24/17 08:00 06/23/17 07:59 05/24/17 07:33 50 MG Objective Vital Signs Date Time Temp Pulse Resp B/P (MAP) Pulse Ox O2 Delivery O2 Flow Rate FiO2 05/24/17 15:46 36.6 71 16 110/71 (84) 99 Room Air 05/24/17 08:00 Room Air 05/24/17 07:30 36.7 68 18 106/67 (80) 98 Room Air 05/24/17 00:10 Room Air 05/24/17 00:00 36.3 65 20 91/60 (70) 98 Room Air 05/23/17 20:00 Room Air Physical Exam General Appearance: WD/WN, no apparent distress Neck: supple, no JVD Respiratory/Chest: lungs clear, no respiratory distress, no accessory muscle use Cardiovascular: regular rate, rhythm, no edema, no murmur Abdomen: normal bowel sounds, non tender, soft Extremities: normal inspection, normal capillary refill Assessment and Plan 32 yo M initially presented for evaluation of a sebaceous cyst, found to potentially have latent TB until proven otherwise. Potential for latent TB - Quantiferon test ordered= negative - PPD= +9 - 3 morning sputums= negative - sputum cultures= pending - HIV, Hep B and Hep C= negative - Dr. Mckinney will start patient on RIPE therapy until sputum cultures are grown--> patient has follow up appointment in 8 weeks--> will stop treatment for LTBI if cultures negative at that time - [facility] nurses to see patient this evening and educate him Abdominal pain - zantac PO - milk of mag and miralax ordered for AB pain External haemmorhoids - anusol q6 Resident Physician Supervision Note: I interviewed and examined the patient. Discussed with Dr. Noble and agree with findings and plan as documented in the note. Any exceptions or clarifications are listed here: None Documented By: Prince Keyes feeling OK wants to go home d/w CB who then saw him right after us. all other ROS otherwise negative except for as above as best can be ascertained. vitals noted nad brething unlabored no pallor or icterus suspected Tb - treatment as per ID. CB now involved. should be able to go home tomorrow Continued [facility] stay due to: other
[2017-05-24] MEDS: SODIUM CHLORIDE 0.9% NEBU SOLN 3 ML NEB INH SCH (18:42)
[2017-05-24 19:40] LABS: HEP B QUANT <20 IU/mL (<20); HEP B QUANT LOG IU/ML <1.30 Log IU/mL (<1.30); HEPATITIS C VIRAL RNA BY PCR <15 NOT DETECTED IU/ML (<15); HEPATITIS C VIRAL RNA(LOG) PCR <1.18 NOT DETECTED LOG IU/ML (<1.18)
[2017-05-24 23:58] VITALS: BP 104/67; PULSE 59; TEMP 36.4; O2SAT 100
[2017-05-25] MEDS: HYDROCORTISONE HC 2.5% CRM 30GM TUBE EXT SCH ×2 (05:47→12:29)
[2017-05-25] MEDS: SODIUM CHLORIDE 0.9% NEBU SOLN 3 ML NEB INH SCH (07:11)
[2017-05-25] MEDS: ISONIAZID 300 MG TAB PO SCH (07:56)
[2017-05-25] MEDS: ETHAMBUTOL HCL 400 MG TAB PO SCH (07:57)
[2017-05-25] MEDS: POLYETHYLENE (MIRALAX) 17 GM PACK PO SCH (07:57)
[2017-05-25] MEDS: RIFAMPIN 300 MG CAP PO SCH (07:58)
[2017-05-25] MEDS: PYRAZINAMIDE 500 MG TAB PO SCH (07:58)
[2017-05-25] MEDS: PYRIDOXINE HCL 50 MG TAB PO SCH (07:59)
[2017-05-25] MEDS: RANITIDINE HCL 150 MG TAB PO SCH (08:02)
[2017-05-25] MEDS ORDERED: NURSING VERBAL MED ORDER ONE (10:45)
--- NOTE | 2017-05-25 14:55 | Progress Note ---
Subjective Date of Service: May 25, 2017. Subjective spoke with Jung from [facility]. States she did interview with pt yesterday afternoon, she did speak with [facility] physician via phone after her interview and based on negative IGRA (not available at time of medication initiation) pt was deemed not high risk for active TB with negative IGRA and 3 negative smears. She also expressed a concern for flight risk if pt was d/c home on RIPE. [facility] rec is d/c pt on no therapy with no plan for treatment for LTBI in future with negative IGRA. Informed that if pt sputum grows TB, [facility] will provide treatment at that time. Problem List Medical Problems: (1) Skin lesion of chest wall Status: Acute (2) Tuberculosis Status: Acute Objective Vital Signs Date Time Temp Pulse Resp B/P (MAP) Pulse Ox O2 Delivery O2 Flow Rate FiO2 05/25/17 08:00 Room Air 05/25/17 00:00 Room Air 05/24/17 23:58 36.4 59 20 104/67 (79) 100 Room Air 05/24/17 17:00 Room Air 05/24/17 15:46 36.6 71 16 110/71 (84) 99 Room Air Laboratory Results Item Value Date Time TB Test (QFT) NEGATIVE 05/20/17 0516 Acid Fast Stain - Final Resulted 05/23/17 0610 Sputum Expectorated Sputum Acid Fast Stain - Final Resulted 05/22/17 0615 Sputum Expectorated Sputum Acid Fast Stain - Final Resulted 05/21/17 1730 Sputum Expectorated Sputum Gram Stain - Final Complete 05/20/17 1720 Cerebral Spinal Fluid Blood Culture - Final Complete 05/19/17 2105 Blood NO GROWTH Blood Culture - Final Complete 05/19/17 2005 Blood NO GROWTH Assessment and Plan (1) Lung granuloma Assessment & Plan: pt with 3 negative smears, low infectivity if pulm tb, ok to remove from isolation and d/c to home. Informed by [facility] that no additional follow up will be planned, no additional treatment will be given at this time unless culture grow mtb. will stop meds at this time. ok for d/c. will discuss with primary. Continued [facility] stay due to: other
[2017-05-25 15:00] VITALS: BP 103/73; PULSE 58; TEMP 36.8; O2SAT 99
--- NOTE | 2017-05-25 15:05 | Discharge Instructions ---
Discharge Instructions Date of Service May 25, 2017. Admission Reason for Admission: Pulmonary Tb Discharge Discharge Diagnosis / Problem: Granuloma on CT and +9PPD Discharge Goals Goal(s): Decrease discomfort, Improve nutritional status, Prevent Disease Progression Activity Recommendations Activity Limitations: per Instructions/Follow-up section . Instructions / Follow-Up Instructions / Follow-Up You will be discharged from the hospital today with no medications You may go back to work as soon as you like The department of health will phone you if any of your sputum results return as positive If you have any fevers, chills, weight loss or coughing of bloody sputum then please come back to the emergency department Current Hospital Diet Patient's current hospital diet: Regular Diet Discharge Diet Recommended Diet: Regular Diet Pending Studies Studies pending at discharge: no Medical Emergencies . Who to Call and When: Medical Emergencies: If at any time you feel your situation is an emergency, please call 911 immediately. . Non-Emergent Contact Non-Emergency issues call your: Primary Care Provider . . "Provider Documentation" section prepared by [employer]. . VTE Core Measure Inpt VTE Proph given/why not?: Treatment not indicated
[2017-05-25 16:46] VITALS: BP 103/73; PULSE 58; TEMP 36.8; O2SAT 99
--- NOTE | 2017-05-25 18:04 | Discharge Summary ---
Discharge Summary Date of Service May 25, 2017. (Boo Noble MD) Discharge Summary Admission Date: May 20, 2017 at 00:01 Discharge Date: May 25, 2017 Discharge Disposition: Home Principal Diagnosis: TB workup Procedures: Lumbar Puncture Skin Biopsy Consultations: Pulm Infectious Disease (Boo Noble MD) Discharge Exam Patient comfortable and in no acute distress Spoke to [facility] and patient will be allowed to be discharged Review of Systems: Constitutional: No fever, No chills Respiratory: No cough, No dyspnea on exertion, No hemoptysis Cardiovascular: No chest pain, No edema, No palpitations Abdomen: No pain, No nausea, No vomiting Musculoskeletal: No joint pain Integumentary: No rash, No itch, No new/changing skin lesions Physical Exam: General Appearance: WD/WN, no apparent distress Respiratory/Chest: lungs clear, no respiratory distress, no accessory muscle use Cardiovascular: regular rate, rhythm, no murmur, normal peripheral pulses Abdomen / GI: normal bowel sounds, non tender, soft Neurologic/Psychiatric: alert, normal mood/affect, oriented x 3 Skin: normal color, warm/dry, no rash (Boo Noble MD) Hospital Course 32-[facility] Latvian speaking male came to the ED for a sebaceous cyst on his chest and had a CXR which showed a granuloma at the right lung base. On further questioning he said he had a 6-7 month h/o arthralgias, headache, fevers , enlarging left anterior chest lesion, and cough + hemoptysis (1-2x / month - past 3-months). He also had a history of being incarcerated in [place]. In the ED he had a CXR which showed a calcified granuloma at the right lung base. Ct scan showed a RLL granuloma and a 1.5 sebacous cyst on his left ventral chest wall. [facility] in an isolation room and had Pulmonology and Infectious Disease consulted. He had 3 AFB sputums ordered, quantiferon ordered as well as Hep B, C and HIV. Due to his headache he had an LP done which returned as normal. On 05/22 he had a PPD placed which came back as 9mm induration and he had a biopsy of his chest wall cyst which returned as a benign skin lesion. His AFB's and Quant gold returned as negative however ID decided to start the patient on RIPE therapy as the patient had the history of hemoptysis and had a granuloma on his CXR. The department of health were contacted who came to see the patient on the 05/24. They discussed the case with their TB specialist and it was decided that the patient could be discharged without any therapy and would not have to be in isolation. It was decided that the CB would contact the patient after 8 weeks when the sputum culture results returned and if need be they would treat him then The patient was discharged home on 05/25. Total Time Spent: Less than 30 minutes This includes examination of the patient, discharge planning, medication reconciliation, and communication with other providers. (Boo Noble MD) Resident Physician Supervision Note: I interviewed and examined the patient. Discussed with Dr. Noble and agree with findings and plan as documented in the note. Any exceptions or clarifications are listed here: None Documented By: Prince Keyes feeling fine. 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 able to talk to pt well today. explained situation and how concerning features led to need for Tb workup, but once CB was involved they did not see enough features to warrant treatment, especially w negative sputum for AFB and neg quantiferon. stable / safe for home. per CB no treatment needed at this time. safe to return to work, etc. pt excited to go home. updated his friend at his request as well. vitals noted nad breathing unlabored no pallor or icterus granuloma - nonspecific. Tb w/u initially concerning but in the end CB deems no need for treatment. stable for home chest wall lesion nonspecific nonmalignant spindle cells/scar tissue (Prince Keyes, D.O.) Discharge Instructions Please refer to the electronic Patient Visit Report (Discharge Instructions) for additional information. (Boo Noble MD) Additional Copies To [facility]
== END 2017-05-25 17:30 | disposition home or self-care (01) | DRG 197 ==
LOC: C.EDB 18:09 → MERGE 05-20 00:01 → C.4E 05-20 00:01 → ENRESERV 05-20 00:34
PROVIDERS: ADMIT Internal Medicine; ATTEND Family Medicine
PROC: 009U3ZX Drainage of Spinal Canal, Percutaneous Approach, Diagnostic (ICD-10-PCS; principal; 2017-05-20)
DX: J84.10 Pulmonary fibrosis, unspecified (principal); R04.2 Hemoptysis; Z03.89 Encounter for observation for other suspected diseases and conditions ruled out; R63.4 Abnormal weight loss; R51 Headache; L72.3 Sebaceous cyst; L73.9 Follicular disorder, unspecified; K59.00 Constipation, unspecified; K64.4 Residual hemorrhoidal skin tags; R10.9 Unspecified abdominal pain; F17.200 Nicotine dependence, unspecified, uncomplicated; Z20.1 Contact with and (suspected) exposure to tuberculosis; Z68.25 Body mass index [BMI] 25.0-25.9, adult

== ENCOUNTER 2018-02-27 09:53 | Emergency (ER) | payer SELFPAY ==
[~2018-02-27] VITALS: Ht 172.7 cm; Wt 66.7 kg
[2018-02-27 10:01] VITALS: TEMP 36.5; Ht 172.7 cm; Wt 66.7 kg
--- NOTE | 2018-02-27 11:26 | EMERGENCY ROOM VISIT NOTE ---
History First contact with patient: 10:24 Chief Complaint: ILLNESS Stated Complaint: FEVER,HEADACHE,SORE THROAT History of Present Illness The patient is a 33 year old male with hx of mycobacterium avium positive sputum (untreated) presents to the Emergency Room with complaints of headache and abdominal pain x multiple months. Headache occurs 3-4 days/week; R sided near R ear; associated with photophobia, n/v; usually wakes up with headache and it gets worse over the course of the day especially in the afternoon. Abdominal pain on and off for about a year associated with nausea, vomiting 2 weeks ago. Also reports fever (off and on; last episode last night), pain in ears, sore throat, cough x 2-3 months mainly dry, palpitations, chest pain, and diarrhea. Denies any sob. Review of Systems see below Constitutional: + fever ENT: + sore throat Respiratory: + cough, No shortness of breath Cardiovascular: + chest pain Abdomen: + pain, + nausea, + vomiting, + diarrhea Genitourinary - Male: No dysuria Neurologic: + problem reported (headache) Past Medical/Surgical History Medical Problems: (1) Lung granuloma (2) Pulmonary TB Family History No pertinent family history Social History Smoking Status: Current Some Day Smoker Drug Use: none Marital Status: Housing Status: lives with significant other Occupation Status: employed Current/Historical Medications No Active Prescriptions or Reported Meds Physical Exam Vital Signs Date Time Temp Pulse Resp B/P (MAP) Pulse Ox O2 Delivery O2 Flow Rate FiO2 02/27/18 14:18 93 18 111/67 99 Room Air 02/27/18 12:27 95 02/27/18 12:04 102 22 115/63 97 Room Air 02/27/18 11:34 98 Room Air 02/27/18 10:01 36.5 71 18 121/76 97 Room Air Physical Exam see below General Appearance: no apparent distress Head: normocephalic, atraumatic Eyes: PERRL, EOMI, + pertinent finding (mild bilateral conjunctival injection) ENT: normal ENT inspection, TMs normal, pharynx normal Neck: supple, no adenopathy Respiratory/Chest: lungs clear, normal breath sounds Cardiovascular: regular rate, rhythm, no murmur Abdomen / GI: normal bowel sounds, soft, + tenderness (tender to palpation over RUQ, RLQ, LUQ, LLQ) Back: normal inspection, no CVA tenderness Extremities: normal inspection, no calf tenderness, no pedal edema Neurologic/Psych: alert Medical Decision & Procedures Laboratory Results 02/27/18 11:30 Red Blood Count 5.26, Mean Corpuscular Volume 87.6, Mean Corpuscular Hemoglobin 30.6, Mean Corpuscular Hemoglobin Concent 34.9, Mean Platelet Volume 10.2, Neutrophils (%) (Auto) 90.4, Lymphocytes (%) (Auto) 4.4, Monocytes (%) (Auto) 4.7, Eosinophils (%) (Auto) 0.1, Basophils (%) (Auto) 0.2, Neutrophils # (Auto) 13.06, Lymphocytes # (Auto) 0.64, Monocytes # (Auto) 0.68, Eosinophils # (Auto) 0.01, Basophils # (Auto) 0.03 02/27/18 11:30 02/27/18 12:21 Test 02/27/18 11:30 02/27/18 12:21 White Blood Count 14.45 K/uL (4.8-10.8) Red Blood Count 5.26 M/uL (4.7-6.1) Hemoglobin 16.1 g/dL (14.0-18.0) Hematocrit 46.1 % (42-52) Mean Corpuscular Volume 87.6 fL (80-100) Mean Corpuscular Hemoglobin 30.6 pg (25-34) Mean Corpuscular Hemoglobin Concent 34.9 g/dl (32-36) Platelet Count 260 K/uL (130-400) Mean Platelet Volume 10.2 fL (7.4-10.4) Neutrophils (%) (Auto) 90.4 % Lymphocytes (%) (Auto) 4.4 % Monocytes (%) (Auto) 4.7 % Eosinophils (%) (Auto) 0.1 % Basophils (%) (Auto) 0.2 % Neutrophils # (Auto) 13.06 K/uL (1.4-6.5) Lymphocytes # (Auto) 0.64 K/uL (1.2-3.4) Monocytes # (Auto) 0.68 K/uL (0.11-0.59) Eosinophils # (Auto) 0.01 K/uL (0-0.5) Basophils # (Auto) 0.03 K/uL (0-0.2) RDW Standard Deviation 40.3 fL (36.4-46.3) RDW Coefficient of Variation 12.6 % (11.5-14.5) Immature Granulocyte % (Auto) 0.2 % Immature Granulocyte # (Auto) 0.03 K/uL (0.00-0.02) Anion Gap 1.0 mmol/L (3-11) Est Creatinine Clear Calc Drug Dose 106.7 ml/min Estimated GFR () 125.3 Estimated GFR (Non- 108.1 BUN/Creatinine Ratio 13.0 (10-20) Calcium Level 9.1 mg/dl (8.5-10.1) Total Bilirubin 0.5 mg/dl (0.2-1) Alanine Aminotransferase (ALT/SGPT) 42 U/L (12-78) Alkaline Phosphatase 86 U/L (45-117) Total Protein 8.3 gm/dl (6.4-8.2) Albumin 4.0 gm/dl (3.4-5.0) Lipase 135 U/L (73-393) Influenza Type A (RT-PCR) Neg for Influ A (NEG) Influenza Type B (RT-PCR) Neg for Influ B (NEG) Direct Bilirubin 0.1 mg/dl (0-0.2) Aspartate Amino Transf (AST/SGOT) 19 U/L (15-37) Medications Administered Medications (Trade) Dose Ordered Sig/Ella Route Start Time Stop Time Status Last Admin Dose Admin Sodium Chloride 1,000 ml @ 999 mls/hr Q1H1M STAT IV 02/27/18 13:36 02/27/18 14:36 DC 02/27/18 14:15 999 MLS/HR Ketorolac Tromethamine (Toradol Inj) 30 mg NOW STAT IV 02/27/18 13:36 02/27/18 13:37 DC 02/27/18 14:13 30 MG Acetaminophen/ Hydrocodone Bitart ([place] 5/325 Tab) 1 tab NOW STAT PO 02/27/18 13:36 02/27/18 13:37 DC 02/27/18 14:13 1 TAB Medical Decision 33y/oM with hx of MAC (based on culture results during admission in 2017; untreated as pt was lost to follow up) and lung granuloma presents with multiple symptoms including fever, abdominal pain and headaches x multiple months. Concerning for possible disseminated MAC infection (causes intermittent fever, anorexia, diarrhea, abdominal pain, and cough) vs. acute viral illness vs. migraine headaches vs. cluster headache vs. gastritis vs. pancreatitis vs. hepatitis Dr. Pradhan consulted, recommended repeat of chest CT and if unchanged recommending ID follow up at [facility] or clinic for potential MAC treatment. -Ordered CXR - negative -Ordered EKG - sinus tachycardia 106, QTc 403 -Ordered CBC w/t diff, BMP, LFT, Lipase: WBC of 14.5 with immature granulocytes , and elevated neutrophils; BMP, LFT, Lipase wnl -Influenza A and B - negative -Received NS 1L at 13:36 -Received Toradol 30mg at 13:36 -Received [place] 5/325 at 13:36 -Ordered CT Chest w/ot contrast - unchanged; RLL calcified granuloma and calcified mediastinal LN; no acute intrathoracic abnormality or acute infection -Ordered CT head w/ot contrast - no acute intracranial pathology -Pt clear to be discharged home with follow up with Dr. Mckinney and [facility] Medication Reconcilliation Current Medication List: was personally reviewed by ma Blood Pressure Screening Patient's blood pressure: Normal blood pressure Impression Primary Impression: Viral illness Additional Impression: Mycobacterium avium complex Resident Involvement: Resident Care Provided Care Provided: Adult ED Departure Information Dispostion Home / Self-Care Condition GOOD Prescriptions No Active Prescriptions or Reported Meds Referrals No Doctor, Assigned (PCP) [facility] Jennifer. Mckinney D.O. Patient Instructions [facility] Additional Instructions Follow up with [facility] and Dr. Mckinney (our infectious disease doctors) for treatment of Mycobacterium Avium Complex Problem Qualifiers
[2018-02-27 11:34] VITALS: O2SAT 98
--- NOTE | 2018-02-27 11:38 | DIAGNOSTIC IMAGING REPORT ---
CHEST ONE VIEW PORTABLE CLINICAL HISTORY: chest pain dyspnea COMPARISON STUDY: No previous studies for comparison. FINDINGS: The bones soft tissues and hemidiaphragms are normal. The cardiomediastinal silhouette is normal. The lungs are clear. The pulmonary vasculature is normal. IMPRESSION: Negative chest. The above report was generated using voice recognition software. It may contain grammatical, syntax or spelling errors. Electronically signed by: Benigno Gustafson M.D. 02/27/2018 11:37 AM Dictated Date/Time: 02/27/2018 11:37 AM
[2018-02-27 11:41] LABS: BASO % 0.2 %; BASO ABS # 0.03 K/uL (0-0.2); EOS % 0.1 %; EOS ABS # 0.01 K/uL (0-0.5); HEMATOCRIT 46.1 % (42-52); HEMOGLOBIN 16.1 g/dL (14.0-18.0); IG# 0.03 K/uL (0.00-0.02); LYMPH % 4.4 %; LYMPH ABS # 0.64 K/uL (1.2-3.4); MEAN CELL VOLUME 87.6 fL (80-100); MEAN CORPUSCULAR HEMOGLOBIN 30.6 pg (25-34); MEAN CORPUSCULAR HGB CONC 34.9 g/dl (32-36); MEAN PLATELET VOLUME 10.2 fL (7.4-10.4); MONO % 4.7 %; MONO ABS # 0.68 K/uL (0.11-0.59); NEUT % 90.4 %; NEUT ABS # 13.06 K/uL (1.4-6.5); PLATELET COUNT 260 K/uL (130-400); RED CELL DISTRIBUTION WIDTH CV 12.6 % (11.5-14.5); RED CELL DISTRIBUTION WIDTH SD 40.3 fL (36.4-46.3); WHITE BLOOD COUNT 14.45 K/uL (4.8-10.8)
[2018-02-27 12:09] LABS: CALCIUM 9.1 mg/dl (8.5-10.1); CREATININE 0.92 mg/dl (0.60-1.40); TOTAL PROTEIN 8.3 gm/dl (6.4-8.2)
[2018-02-27 12:25] LABS: INFLUENZA A PCR Neg for Influ A (NEG); INFLUENZA B PCR Neg for Influ B (NEG)
[2018-02-27 12:45] LABS: POTASSIUM 4.2 mmol/L (3.5-5.1)
[2018-02-27] MEDS ORDERED: SODIUM CHLORIDE 0.9% 1000ML 1,000 ML IV STA (13:36)
[2018-02-27] MEDS ORDERED: HYDROCODONE/ACETAMIN 5/325MG TAB PO STA (13:36)
[2018-02-27] MEDS ORDERED: KETOROLAC TROMETHAMINE 30 MG/ML VIAL IV STA (13:36)
--- NOTE | 2018-02-27 14:11 | DIAGNOSTIC IMAGING REPORT ---
(CHEST) THORAX WITHOUT CLINICAL HISTORY: 33 years-old Male presenting with granuloma on previous, ? MAC on sputum cx 2017. TECHNIQUE: Multidetector CT imaging of the chest was performed without the use of intravenous contrast. IV contrast: None. A dose lowering technique was used consistent with the principles of ALARA (as low as reasonably achievable). COMPARISON: 05/19/2017. CT DOSE (mGy.cm): The estimated cumulative dose is 234.00 mGycm. FINDINGS: Combat Control topogram: Unremarkable. On soft tissue windows, normal thyroid. Persistent subcutaneous 1.5 cm nodule along the anterior left chest wall, likely sebaceous cyst, unchanged. Calcified subcarinal mediastinal lymph node. No axillary, supraclavicular, or mediastinal lymphadenopathy. Evaluation of the boo limited without intravenous contrast. Residual thymic parenchyma suggested in the anterior mediastinum, unchanged. Normal aorta. Normal heart size. No pericardial or pleural effusion. Upper abdomen normal. On lung windows, calcified granuloma noted in the right lower lobe. Motion artifact significantly degrades evaluation of lung parenchyma. Allowing for this, no other focal infiltrate or nodule. Central airways patent. On bone windows, normal osseous structures. IMPRESSION: 1. No acute intrathoracic pathology. No evidence of an active infection. 2. Evidence of prior granulomatous disease with a calcified granuloma in the right lower lobe and calcified mediastinal lymph node. Electronically signed by: Gaurang Mcbride M.D. 02/27/2018 2:09 PM Dictated Date/Time: 02/27/2018 2:05 PM
--- NOTE | 2018-02-27 14:12 | DIAGNOSTIC IMAGING REPORT ---
HEAD CT NONCONTRAST CT DOSE: 788.63 mGycm HISTORY: Headache. TECHNIQUE: Multiaxial CT images of the head were performed without the use of intravenous contrast. Automated exposure control was utilized for this study. A dose lowering technique was utilized adhering to the principles of ALARA. Comparison: Head CT 05/20/2017. Findings: The paranasal sinuses and mastoid air cells are clear. The calvarium and skull base are intact. The ventricles and sulci are within normal limits. There is no mass, hematoma, midline shift, or acute infarct. Impression: No acute intracranial abnormality. Electronically signed by: Nirav Gamez M.D. 02/27/2018 2:11 PM Dictated Date/Time: 02/27/2018 2:04 PM
[2018-02-27 16:09] VITALS: BP 116/71; PULSE 86; O2SAT 98
--- NOTE | 2018-02-28 15:46 | EMERGENCY ROOM VISIT NOTE ---
ED Visit Note First contact with patient: 10:24 Resident Physician Supervision Note: I interviewed and examined the patient. Discussed with Dr. Hodges and agree with findings and plan as documented in the note. Any exceptions or clarifications are listed here: This patient was evaluated and appeared to be in no significant distress. Physical examination is fairly unrevealing. In review of the patient's past medical records, he grew Mycobacterium avium complex from the sputum in 2017. The patient denies ever getting notification or seeking follow-up regarding this finding. I did speak with Dr. Mckinney who cared for the patient in the hospital from infectious disease 1 year ago. She states that the patient is a high flight risk and has poor compliance. She recommended CT scan of the chest which was essentially unchanged from previous. She does not believe that MAC is causing the patient's symptoms today. She believes it is likely viral etiology. Treatment for MAC involves multiple antibiotics over the course of at least 6 months. The patient never followed up in her office for his previous admission. She recommends at this time follow-up with her either through [facility] or in her [facility] clinic. Dr. Mckinney will help establish care for MAC at that time. 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 He has expressed an understanding and agrees. He will return to the ER for worsening of symptoms or any medical concerns. Documented By: Perri Ulloa
== END 2018-02-27 16:05 | disposition home or self-care (01) ==
LOC: C.EDB 09:55 → C.EDC 16:05
DX: R69 Illness, unspecified (principal); A31.2 Disseminated mycobacterium avium-intracellulare complex (DMAC); F17.200 Nicotine dependence, unspecified, uncomplicated